=== PATIENT | male | born 1970 | race Caucasian/White ===

== ENCOUNTER 2021-06-03 11:56 | Outpatient (CLI) | payer OTHER, SELFPAY ==
[2021-06-03 13:11] LABS: Basophils Absolute Auto 0.1 K/mm3 (0.0-0.1); Basophils Percent Auto 0.7 % (0.2-1.2); Eosinophils Absolute Auto 0.2 K/mm3 (0-0.3); Eosinophils Percent Auto 2.3 % (0-4.4); Hematocrit 43.6 % (42.0-52.0); Hemoglobin 14.6 g/dL (14.0-18.0); Immature Granulocyte Absolute 0.02 K/mm3 (0.00-0.031); Immature Granulocyte Percent A 0.3 % (0-0.5); Lymphocytes Absolute Auto 1.44 K/mm3 (0.9-3.2); Lymphocytes Percent Auto 20.6 % (18.3-44.2); Mean Corpuscular HGB Conc 33.5 g/dl (32-36); Mean Corpuscular Hemoglobin 31.3 pg (26-34); Mean Corpuscular Volume 93.4 fl (80-100); Mean Platelet Volume 10.8 fl (7.4-10.4); Monocytes Absolute Auto 0.4 K/mm3 (0.1-0.6); Monocytes Percent Auto 5.6 % (2.6-8.5); Neutrophils Absolute Auto 4.9 K/mm3 (1.3-6.7); Neutrophils Percent Auto 70.5 % (45.5-73.1); Platelet Count Result 198 k/mm3 (150-375); Red Blood Count 4.67 M/mm3 (4.6-6.20); Red Cell Distribution Width 13.2 % (11.5-14.5)
[2021-06-03 13:30] LABS: CRP < 0.5 mg/dL (<1.0)
[2021-06-03 14:58] LABS: Erythrocyte Sedimentation Rate 13 mm/hr (0-20)
== END 2021-06-03 11:57 | disposition home or self-care (01) ==
PROVIDERS: PCP Internal Medicine; Visit Provider Orthopaedic Surgery
DX: T84.84XA Pain due to internal orthopedic prosthetic devices, implants and grafts, initial encounter (principal); Z96.651 Presence of right artificial knee joint
CPT/HCPCS: 36415; 85025; 85652; 86140

== ENCOUNTER 2021-06-09 08:37 | Outpatient (CLI) | payer OTHER, SELFPAY ==
--- NOTE | 2021-06-09 08:50 | ECG_ITS ---
Measurements Intervals [place] Rate: 71 P: [place]: 0 QRS: 30 QRSD: 88 T: 41 QT: 376 QTc: 411 Interpretive Statements ATRIAL FIBRILLATION BASELINE ARTIFACT- I, II, III, AVR, AVL, AVF, V1-V6 ABNORMAL ECG Electronically Signed On 06-09-2021 9:43:09 [employer] HEL[employer] by Flaco Galdamez D.O.
[2021-06-09 09:53] LABS: Anion Gap 7 mmol/L (8-16); Blood Urea Nitrogen 12 mg/dL (9-20); Calcium 9.6 mg/dL (8.4-10.2); Carbon Dioxide 34 mmol/L (22-30); Chloride 99 mmol/L (98-107); Estimated Glomerular Filt Rate > 60; Glucose 92 mg/dL (65-110); Potassium 4.2 mmol/L (3.4-5.0); Sodium 140 mmol/L (137-145)
== END 2021-06-09 08:38 | disposition home or self-care (01) ==
LOC: ANHSURGERY 08:40
PROVIDERS: Anesthesiology; PCP Internal Medicine; Visit Provider Orthopaedic Surgery
DX: Z01.818 Encounter for other preprocedural examination (principal); I10 Essential (primary) hypertension; I48.91 Unspecified atrial fibrillation; Z79.899 Other long term (current) drug therapy; R94.31 Abnormal electrocardiogram [ECG] [EKG]
CPT/HCPCS: 36415; 80048; 93005

== ENCOUNTER 2021-06-10 02:06 | Day surgery (SDC) | payer OTHER, SELFPAY ==
[2021-06-08 10:52] VITALS: BMI 35.2
--- NOTE | 2021-06-08 11:01 | PC.NURSE ---
Report to the Outpatient Waiting Room, entrance under the green pavilion located off [facility], at time 6:00 on date 06/10/21. OR Time: 8:00. - You will be asked a series of questions to screen for COVID 19 for your protection. - A mask is required within the hospital. - No visitors are allowed at this time. Preoperative COVID Testing Requirements: No COVID Test needed if: (proof is required; if not received patient will have Rapid Test prior to entry) - Patient has received COVID Vaccine at least 14 days prior to procedure date or - Patient has positive COVID test result within last 90 days of surgery date. COVID Test needed if above criteria is not met Patients may have clear liquids (water, carbonated beverages, clear teas, apple juice) until 3 hours prior to surgery (5:00) with a maximum of 20 ounces. - No food from midnight until time of surgery Take the following medications with a SIP of water the morning of surgery: PAIN PILL (IF NEEDED), METOPROLOL Medications to discontinue per physician: SILVIA Date to take last dose: PER DR. HILL Please no make-up, nail tamazight, hairspray, perfume, deodorant, or body powder the day of surgery. No jewelry (including any body piercings) or valuables the day of surgery, leave them at home. Please take a shower or bath the night before, or the morning of, surgery with an antibacterial soap. Wear comfortable, loose fitting clothing. - Jewelry must be removed prior to entering the operating room. Rings and piercings that are not removed may be cut off. - The hospital will not accept responsibility for valuables. - Please leave all valuables, including medications, at home the day of surgery. If you are going home after surgery, a licensed ross carrier driver must drive you home. - NO public transportation without another adult. - We recommend that an adult stay with you for 24 hours following discharge. - We also recommend that you do not drive, make important decision, drink alcoholic beverages, or take any drugs that were not prescribed by your health care provider for at least 24 hours after your discharge time. Follow any additional instructions given to you from your surgeon. Telephone instructions given to JACOB MCCOY and asked if any additional questions and then verbalized understanding. Patient advised to call surgeon office or pre surgery nurse liaison [phone] if any additional questions.
--- NOTE | 2021-06-09 16:09 | WPDANESEPPF ---
Anes - Initial Pre Proc Eval Procedure: Operation Date: 06/10/21 08:00 Proposed Procedures p Right Knee Arthroscopy with Synovectomy - Ryley Chan MD Date/Time: 06/09/21 16:09 Surgeon: Ryley Chan MD Pre Op Diagnosis: painful total knee arthroplasty, impingement Patient Data Age: 50 Gender: M Height: 1.98 m Weight: 138.35 kg Allergies Allergy/AdvReac Type Severity Reaction Status Date / Time No Known Allergies Allergy Unknown Verified 06/10/21 06:32 Home Medications Medication Instructions Recorded Confirmed Type allopurinol 300 mg tablet 150 mg PO DAILY 06/04/21 06/10/21 History apixaban 2.5 mg tablet 2.5 mg PO BID 06/04/21 06/10/21 History atorvastatin 10 mg tablet 10 mg PO DAILY 06/04/21 06/10/21 History fluticasone propionate 50 1 spray INTRANASAL DAILY 06/04/21 06/10/21 History mcg/actuation nasal spray,suspension hydrochlorothiazide 12.5 mg tablet 12.5 mg PO DAILY 06/04/21 06/10/21 History hydrocodone 7.5 mg-acetaminophen 1 tablet PO QHS PRN 06/04/21 06/10/21 History 325 mg tablet lisinopril 40 mg tablet 40 mg PO DAILY 06/04/21 06/10/21 History metoprolol succinate 50 mg 50 mg PO DAILY 06/04/21 06/10/21 History tablet,extended release 24 hr tramadol 50 mg tablet 50 mg PO Q6H PRN #20 tablet MDD 4 06/04/21 06/10/21 Rx Patient hx anesthesia problems: none Family hx anesthesia problems: none Results Review: All pre-operative results and documents have been reviewed as part of the pre-operative evaluation. [facility] Past Medical History Medical History (Updated 06/09/21 @ 16:10 by Jason Carmona MD) Atrial fibrillation Hyperlipidemia Hypertension Impingement of right knee joint Obesity Surgical History Surgical History (Updated 06/04/21 @ 10:57 by Ping Fuentes) History of total knee replacement (~09/2016) right knee Family History Family History Other Diabetes mellitus Family history of arthritis Family history of cardiovascular disease Family history of chronic obstructive pulmonary disease Hypertension Social History Social History Tobacco type: cigars Alcohol intake: current Drinks per week: 7 Substance use: current Substance use type: marijuana Living arrangements: with family Spiritual care concerns: No Anes - Eval Final PreProcedure Day of Procedure 06/09/21 16:09 Patient weight: obese Heart: regular rate and rhythm Lungs: clear to auscultation and normal air movement Airway: Mallampati scale class II Neurological: alert and oriented Last oral intake: >/= 8 hours ASA classification: III Emergent: no Anesthetic plan: proceed Anesthesia type and monitoring: general LMA Results Review: All pre-operative results and documents have been reviewed as part of the pre-operative evaluation. Informed Consent: The patient's anesthetic plan and its attendant risks and benefits were discussed with the patient/family/POA. Questions were solicited and answers provided to the satisfaction of the patient/family/POA.
[2021-06-10] VITALS (7 sets, daily range): BP systolic 122–145; BP diastolic 80–98; PULSE 65–105; RESP 14–20; TEMP 36.2–36.4; O2SAT 96–100
[2021-06-10] MEDS: ACETAMINOPHEN 500 MG TABLET 1000 MG PO (06:40)
[2021-06-10] MEDS: LACTATED RINGERS 1,000 ML 30 ML IV CONT ×2 (06:40→09:08)
[2021-06-10] MEDS: KETOROLAC 15 MG/ML VIAL (*BKC) IV PUSH (07:01)
[2021-06-10] MEDS: ceFAZolin 3 GM/D5W 100 ML 100 ML IVPB (07:44)
--- NOTE | 2021-06-10 07:50 | WPDHPUPDATE1 ---
History and Physical Update Update Date/Time: 06/10/21 07:50 History and Physical has been reviewed, including an updated exam of the patient. There are NO changes in the patient's condition. Risks, benefits, and alternatives have been discussed and questions answered. Patient agrees to proceed with procedure.
[2021-06-10] MEDS: BUPIVACAINE/EPINEPHRINE 0.25% 10 ML VIAL 20 ML INFILTRATE (08:20)
[2021-06-10] MEDS: fentaNYL CITRATE INJ (*CRX) 100 MCG/2 ML VIAL 25 MCG IV PUSH ×2 (09:46→09:49)
--- NOTE | 2021-06-10 13:59 | P.OP_ITS ---
Procedure Note - Detailed Date of Procedure 06/10/21 Pre-op Diagnosis painful total knee arthroplasty, impingement Post-op Diagnosis same Procedure Performed Arthroscopic partial synovectomy, right knee. Surgeon Ryley Chan MD Senior Patient Account Representative Sveta Meza PA-C Anesthesia general Indications Recurrent, painful catching sensation at the lateral joint, s/p total knee arthroplasty. Previously functioning very well. Findings Effusion. No purulence. Minimal synovitis. Proliferative synovium lateral joint with tissue entrapment at the lateral articulation. Tissue excised arthroscopically. Mild lateral laxity. PCL intact. No other pathologic findings. Description of Procedure The patient was identified and the surgical site confirmed and signed in the preoperative holding area. Antibiotics were started per protocol. She was brought to the operative room and transferred to the OR table. A general anesthetic was administered. Supine position with the operative lower extremity position in the leg gomez after placement of a well padded tourniquet. The leg support was lowered and the contralateral limb was supported with a soft bolster. The knee was prepped and draped in the usual sterile fashion. A time- out was performed. The portal sites were marked and infiltrated with 0.5% Marcaine 20 mL. The limb was exsanguinated and the tourniquet inflated to 300 mL Hg. Standard inferolateral and inferomedial portals were established. Inflow was obtained with the saline pump. The camera was introduced. Diagnostic inspection of the joint was accomplished. The proliferative, unstable, lateral capsular tissue was debrided with the arthroscopic shaver until stable. The radiofrequency probe was also used for further d?bridement. Slight further debridement of hypertrophic peripatellar tissue was performed, where there was concern for possible impingement or catching. The arthroscopic instruments were removed. The tourniquet released and wounds closed with subcutaneous 4-0 Monocryl absorbable suture. Steri strips and a sterile dressing were applied. A light elastic wrap was placed. The patient was extubated and brought to the recovery room in stable condition. Estimated Blood Loss 5 Drains No Complications No immediate complications Condition stable Disposition PACU
== END 2021-06-10 11:00 | disposition home or self-care (01) ==
PROVIDERS: PCP Internal Medicine; Visit Provider Orthopaedic Surgery
PROC: (CPT 29870; principal; 2021-06-10 08:00)
DX: M25.861 Other specified joint disorders, right knee (principal); M25.561 Pain in right knee; M65.861 Other synovitis and tenosynovitis, right lower leg; Z96.651 Presence of right artificial knee joint; I48.91 Unspecified atrial fibrillation; E78.5 Hyperlipidemia, unspecified; I10 Essential (primary) hypertension; E66.9 Obesity, unspecified; Z68.35 Body mass index [BMI] 35.0-35.9, adult; Z79.01 Long term (current) use of anticoagulants; F12.90 Cannabis use, unspecified, uncomplicated; Z72.0 Tobacco use
CPT/HCPCS: 29875; 36415; 80048; 87070; 87075; 87205; 93005; A9270; J0690; J1100; J1885; J2250; J2405; J2704; J3010; J7120

== ENCOUNTER 2021-11-02 11:12 | Inpatient (IN) | payer OTHER, SELFPAY ==
[2021-11-02] VITALS (28 sets, daily range): BP systolic 146–183; BP diastolic 017–147; PULSE 84–134; RESP 12–30; TEMP 36.1–36.6; O2SAT 97–100; BMI 36.6
--- NOTE | ~2021-11-02 | CT_ITS ---
EXAMINATION: CTA chest PE protocol DATE: 11/02/2021 12:30 INDICATION: Dyspnea, shortness of breath. TECHNIQUE: Computed tomography angiography (CTA) of the chest was performed with 100 mL Omnipaque-350 intravenous contrast timed to evaluate the pulmonary arteries. Coronal maximum intensity projection 3D-reconstructions were created by the technologist. Automated exposure control and iterative reconst ruction technique were employed. Exam dose: 951.61 mGy-cm total exam DLP. COMPARISON: 11/02/2021 2 view chest FINDINGS: There is diagnostic contrast enhancement of the pulmonary arteries and no evidence of pulmo nary embolism. Mild cardiomegaly. No pericardial effusion. There is mild right and slight left pleural effusion. There is mild prominence of the fissures suggesting subpleural edema. There is some prominence of the interlobular septa particularly in the lower lobes, suggesting pulmonary interstitial edema. No thoracic aortic aneurysm. Mild nonspecific bilateral hilar and mediastinal lymph node prominence, possibly reactive. The adrenal glands are normal. Bilateral gynecomastia. IMPRESSION: No evidence of pulmonary embolism Congestive changes and small pleural effusions Reviewed, dictated and finalized at [facility]. Reviewed, dictated and finalized at location [facility].
--- NOTE | ~2021-11-02 | XR_ITS ---
EXAMINATION: XR chest 2V DATE: 11/02/2021 11:51 INDICATION: Shortness of breath. Swelling of the feet and ankles. TECHNIQUE: Frontal and lateral views of the chest were obtained on 3 radiographs. COMPARISON: None. FINDINGS: The chest demonstrates clear lungs without pneumonia, pleural effusion, or pneumothorax. Th e heart size is normal. IMPRESSION: 1. No acute cardiopulmonary disease. Reviewed, dictated and finalized at location [facility].
--- NOTE | ~2021-11-02 | US_ITS ---
EXAMINATION:US venous doppler LE LT INDICATION:Left leg swelling TECHNIQUE: Multiple grayscale, color flow and Doppler images of the left lower extremity deep venous systems were obtained and reviewed. COMPARISON:No prior studies for comparison. FINDINGS: The common femoral, superficial femoral and popliteal veins demonstrate normal respiratory variation, augmentation and compressibility. Color flow is also seen within the posterior tibial, pe roneal, greater saphenous and profunda veins. IMPRESSION: 1: No lower extremity deep venous thrombosis. Reviewed, dictated and finalized at location [facility].
--- NOTE | 2021-11-02 11:18 | ECG_ITS ---
Measurements Intervals [place] Rate: 110 P: [place]: 0 QRS: 28 QRSD: 89 T: 69 QT: 362 QTc: 491 Interpretive Statements ATRIAL FIBRILLATION WITH RAPID VENTRICULAR RESPONSE DELAYED PRECORDIAL R/S TRANSITION BORDERLINE ST-T WAVE ABNORMALITY- HIGH LATERAL LEADS ABNORMAL ECG Electronically Signed On 11-02-2021 11:23:03 CDT by Flaco Galdamez D.O.
[2021-11-02 11:35] LABS: Basophils Absolute Auto 0.1 K/mm3 (0.0-0.1); Basophils Percent Auto 0.9 % (0.2-1.2); Eosinophils Absolute Auto 0.1 K/mm3 (0-0.3); Eosinophils Percent Auto 1.5 % (0-4.4); Hematocrit 42.6 % (42.0-52.0); Hemoglobin 13.5 g/dL (14.0-18.0); Immature Granulocyte Absolute 0.02 K/mm3 (0.00-0.031); Immature Granulocyte Percent A 0.2 % (0-0.5); Lymphocytes Absolute Auto 1.57 K/mm3 (0.9-3.2); Lymphocytes Percent Auto 18.3 % (18.3-44.2); Mean Corpuscular HGB Conc 31.7 g/dl (32-36); Mean Corpuscular Volume 94.7 fl (80-100); Mean Platelet Volume 10.7 fl (7.4-10.4); Monocytes Absolute Auto 0.5 K/mm3 (0.1-0.6); Monocytes Percent Auto 5.8 % (2.6-8.5); Neutrophils Absolute Auto 6.3 K/mm3 (1.3-6.7); Neutrophils Percent Auto 73.3 % (45.5-73.1); Platelet Count Result 235 k/mm3 (150-375); Red Cell Distribution Width 13.9 % (11.5-14.5); White Blood Count 8.6 K/mm3 (4.5-10.0)
[2021-11-02 11:45] LABS: INR 1.2; Prothrombin Time 14.8 Seconds (11.1-14.7)
[2021-11-02 11:46] LABS: Alanine Aminotransferase 20 U/L (6-50); Albumin Level 3.9 g/dL (3.5-5.1); Alkaline Phosphatase 86 U/L (38-126); Anion Gap 5 mmol/L (8-16); Aspartate Amino Transferase 28 U/L (17-59); Blood Urea Nitrogen 13 mg/dL (9-20); Calcium 8.7 mg/dL (8.4-10.2); Carbon Dioxide 24 mmol/L (22-30); Chloride 108 mmol/L (98-107); Estimated Glomerular Filt Rate > 60; Glucose 108 mg/dL (65-110); Partial Thromboplastin Time 29.1 SECONDS (22.3-36.8); Sodium 137 mmol/L (137-145)
[2021-11-02 11:58] LABS: NT Pro B Type Natriuretic Pept 7490 pg/mL (5-100); Troponin I < 0.012 ng/mL (0.000-0.034)
--- NOTE | 2021-11-02 12:31 | ED.GENADULT ---
HPI - General Adult General Chief complaint: Arrhythmia/Palpitations Stated complaint: elevated HR, left calf pain, SOB Time Seen by Provider: 11/02/21 12:02 Source: RN notes reviewed History of Present Illness HPI narrative: Patient presents emergency department from home for left calf pain and shortness of breath. Patient states he been having pain and swelling in his left leg for the past 3 days. States the pain is located in his left lower calf is on his dorsal aspect of his left foot he states that he has had swelling with this he denies any direct trauma or injury he also states has been having shortness of breath with a feeling of his heart racing over the past 3 days states that he has no history of recent long travel either by car or plane he denies any history of blood clots he denies any fevers or chills chest pain abdominal pain nausea vomiting or any other symptoms patient states he does have a history of atrial fibrillation states he is followed by cardiology in [place] he is on metoprolol and a milligrams twice a day which she did take this morning as well as Eliquis which she did take this morning as well Related Data Home Medications Medication Instructions Recorded Confirmed allopurinol 300 mg tablet 300 mg PO DAILY 06/04/21 11/02/21 fluticasone propionate 50 2 spray intranasal DAILY 06/04/21 11/02/21 mcg/actuation nasal spray,suspension (Allergy Relief (fluticasone)) Vitamin D3 1.25 mg PO WEEKLY 11/02/21 11/02/21 amlodipine 5 mg tablet 5 mg PO DAILY 11/02/21 11/02/21 apixaban 5 mg tablet (Eliquis) 5 mg PO BID 11/02/21 11/02/21 atorvastatin 40 mg tablet 40 mg PO DAILY 11/02/21 11/02/21 buspirone 10 mg tablet 10 mg PO BID 11/02/21 11/02/21 hydrochlorothiazide 50 mg tablet 50 mg PO DAILY 11/02/21 11/02/21 lisinopril 20 mg tablet 20 mg PO DAILY 11/02/21 11/02/21 melatonin 1 mg tablet 10 mg PO HS PRN Insomnia 11/02/21 11/02/21 metoprolol tartrate 100 mg tablet 100 mg PO BID 11/02/21 11/02/21 polyethylene glycol 3350 17 gram 17 g PO DAILY 11/02/21 11/02/21 oral powder packet sertraline 100 mg tablet 200 mg PO DAILY 11/02/21 11/02/21 tadalafil 5 mg tablet (Cialis) 5 mg PO DAILY PRN Sexual Activity 11/02/21 11/02/21 tamsulosin 0.4 mg capsule 0.4 mg PO DAILY 11/02/21 11/02/21 Allergies Allergy/AdvReac Type Severity Reaction Status Date / Time No Known Allergies Allergy Unknown Verified 11/02/21 11:24 Review of Systems Review of Systems: Gen.: Denies fevers or chills ENT: Denies congestion Respiratory: D reports shortness of breath CV: Denies chest pain or palpitations GI: Denies abdominal pain nausea, emesis or diarrhea Musculoskeletal: Denies back pain reports left calf pain and leg swelling Neuro: Denies numbness, tingling, weakness or focal weakness Skin: Denies rash Except as documented, all other systems reviewed and negative [facility] Past Medical History Medical History Atrial fibrillation History of cardioversion Hyperlipidemia Hypertension Impingement of right knee joint Joint effusion Right knee Obesity Surgical History Surgical History History of synovectomy (~06/10/21) right arthroscopic synovectomy History of total knee replacement (~09/2016) right knee Family History Family History (Updated 11/02/21 @ 16:04 by Pratibha Lara RN) Father Hypertension Mother Hypertension Sibling Hypertension Other Diabetes mellitus Social History Social History Social History: Patient is currently going through a divorce and has two boys 02/03. His mother is his surrogate Ml. He lives by his self and wishes to be a full code at this time. Smoking status: Light tobacco smoker Tobacco type: cigars Additional smoking assessment comments: 1-2 cigars/day Alcohol intake: current Drinks per week: 7 Subst
[2021-11-02 13:18] LABS: SARS-CoV-2 RNA PCR Negative
[2021-11-02] MEDS: HYDROcodone/acetaminophen (*CRX) 5-325 MG TABLET 1 TAB PO ×3 (13:37→21:53)
--- NOTE | 2021-11-02 13:44 | PC.NURSE ---
pt to ultrasound via stretcher. family at bedside.
--- NOTE | 2021-11-02 14:53 | ECG_ITS ---
Measurements Intervals [place] Rate: 113 P: [place]: 0 QRS: 46 QRSD: 85 T: 79 QT: 357 QTc: 490 Interpretive Statements ATRIAL FIBRILLATION WITH RAPID VENTRICULAR RESPONSE DELAYED PRECORDIAL R/S TRANSITION ABNORMAL ECG Electronically Signed On 11-02-2021 15:01:15 CDT by Flaco Galdamez D.O.
--- NOTE | 2021-11-02 15:14 | PM.IMHP ---
H&P: HPI History of Present Illness Date/Time: 11/02/21 15:14 Chief Complaint: shortness of breath Narrative: Patient is a 51 year old male with a past medical history of gout, A.Fib, HLD, HTN, and CHF who presented to the ED with complaints of increasing shortness of breath, and calf pain. He stated that he orginally went to his primary care provider for left leg swelling and pain. However, when he got there they did perform an EKG which showed the patient to be in Afib with a heart rate in the 130. She then told him to come to the ED. patient stated that he was having some shortness of breath when he arrived to the doctor's office morning. He stated his legs are always swollen however they usually do not last long. He denies having any blood clots in the past. He also stated that it does her when he does walk. Patient did say that it was controlled with pain medication. He states that his pain was an 8/10. He does drink 6-8 bottles of water during day and then a few more night. He states that his legs are always swollen. He has also had 4 different surgeries done on his right knee and stated that his left 1 has been progressively getting swollen over the last [address] Lockwood has done the work on his knees, and he sees Dr. Posey for his heart. He also stated that his heart rate is usually in the low 100s, and his blood pressure usually runs 140/90-95. He denies any chest pain, weakness, fatigue, cough, urinary difficulties, dizziness, lightheadedness, nausea, vomiting, diarrhea, constipation, syncope or falls. It is noted the patient's BNP is elevated 7490, D-dimer was 1.20. CTA did not show any PEs. Venous Doppler showed no DVTs in the bilateral lower extremities. Patient is being admitted to the hospitalist service as observation. Review of Systems Review of Systems: All systems reviewed & are unremarkable except as noted in HPI and below PMFSH Past Medical History Medical History Atrial fibrillation History of cardioversion Hyperlipidemia Hypertension Impingement of right knee joint Joint effusion Right knee Obesity Surgical History Surgical History History of synovectomy (~06/10/21) right arthroscopic synovectomy History of total knee replacement (~09/2016) right knee Family History Family History (Updated 11/02/21 @ 16:04 by Pratibha Lara RN) Father Hypertension Mother Hypertension Sibling Hypertension Other Diabetes mellitus Social History Social History Social History: Patient is currently going through a divorce and has two boys 02/03. His mother is his surrogate Ml. He lives by his self and wishes to be a full code at this time. 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 Gender identity (if verbalized by the patient): Male Sexual Orientation (if Verbalized by the Patient): Straight or Heterosexual Spiritual care concerns: No Agree to blood products: Yes Meds Home Medications and Allergies Home Medications Medication Instructions Recorded Confirmed Type allopurinol 300 mg tablet 300 mg PO DAILY 06/04/21 11/02/21 History fluticasone propionate 50 2 spray intranasal DAILY 06/04/21 11/02/21 History mcg/actuation nasal spray,suspension (Allergy Relief (fluticasone)) Vitamin D3 1.25 mg PO WEEKLY 11/02/21 11/02/21 History amlodipine 5 mg tablet 5 mg PO DAILY 11/02/21 11/02/21 History apixaban 5 mg tablet (Eliquis) 5 mg PO BID 11/02/21 11/02/21 History atorvastatin 40 mg tablet 4
[2021-11-02] MEDS: FUROSEMIDE INJ 40 MG/4 ML VIAL IV PUSH ×2 (15:24→16:59)
[2021-11-02] MEDS: METOPROLOL TARTRATE 25 MG TABLET PO (15:24)
[2021-11-02 15:42] LABS: Troponin I 0.012 ng/mL (0.000-0.034)
--- NOTE | 2021-11-02 16:00 | ADMGEN ---
This patient, Tobi Valles, was admitted to IMU Room 210-01. Patient/family oriented to hospital policies and general routines including ID bracelet, bed and alarms, visiting hours, pain management, procedures, bathroom and other care routines, personal items, smoking policy, room service/diet, and visiting hours. Information on how to activate the Rapid Response Team has been discussed. Patient/Family are encouraged to report perceived risks to care and to ask questions if they do not understand what they are told or what they should do.
--- NOTE | 2021-11-02 16:30 | PM.CNCAR ---
Assessment and Plan Assessment and plan (1) CHF (congestive heart failure): Code(s): I50.9 - Heart failure, unspecified Status: Acute (2) Atrial fibrillation: Qualifiers: Atrial fibrillation type: longstanding persistent Qualified Code(s): I48.11 - Longstanding persistent atrial fibrillation Code(s): I48.91 - Unspecified atrial fibrillation Status: Acute Plan This is a 51-year-old man who has chronic permanent atrial fibrillation taking metoprolol for rate control and apixaban for coagulation. He presents with some shortness of breath with activity as well as orthopnea and PND for the last couple of weeks or so. He was sent to this hospital primary care physician although his customs entry writer is not on staff here at [place]. We do not have any previous records of his cardiovascular care for our benefit her review. On physical exam there really is not much audible in the way of pulmonary rales. He does have some mild pulmonary congestion noted on CT of the chest. I believe we should for the time being keep him on his metoprolol and apixaban he has been started on furosemide by the hospitalist which I would agree with. An echocardiogram will be done to assess the structural basis of this. Thank you for asking us to see him while he is here he will intend to follow up with his primary customs entry writer after the discharge. Bolivar Ross MD [facility] History of Present Illness History of Present Illness Consult date/time: 11/02/21 16:30 Consult reason: atrial fibrillation and shortness of breath Reason For Visit: A fib with RVR/CHF Narrative: This is a 51-year-old man I am seeing at the request of the hospitalist because of shortness of breath. The patient came to the emergency room earlier today at the request of the primary care doctor who saw him in the office and directed him to the emergency room because of dyspnea and lower extremity edema. He states the symptoms began over about 2 or 3 weeks ago. The symptoms are problematic if he tries to walk any distances or several times he has noticed them for awakening her from sleep at night. The patient does not carry the diagnosis of congestive heart failure before this he is known to have chronic atrial fibrillation. He does not have any other cardiac problems he is aware of the side his atrial fib. He has seen a couple of different customs entry [facility] and is taking combination of metoprolol for rate control and apixaban for systemic anticoagulation. He does not have any history of coronary artery disease previous [place] or any other previous cardiac issues. He is going through a very stressful personal time with a divorce indicates he was concerned that that may be what is going on in terms of his breathing he does have longstanding hypertension in addition to his metoprolol takes lisinopril and hydrochlorothiazide. He does also have dyslipidemia for which he takes atorvastatin. Review of Systems Constitutional: Constitutional: Reports no additional constitutional complaints Eyes: Eyes: Reports no additional eye complaints ENT: Reports system reviewed and no additional complaints, except as documented Cardiovascular: Cardiovascular: Reports as per HPI Respiratory: Respiratory: Reports dyspnea on exertion Gastrointestinal: Gastrointestinal: Reports no additional gastrointestinal complaints Musculoskeletal: Musculoskeletal: Reports no additional musculoskeletal complaints Integumentary/Breasts: Skin/Breast: Reports system reviewed and no additional complaints, except as docu Neurologic: Reports system reviewed and no additional complaints, except as documented Endocrine: Endocrine: Reports no additional endocrine complaints Hematologic/Lymphatic: Hematologic/Lymphatic: Reports no additional hematologic/lymphatic complaints Allergic/Immunologic: Allergic/Immunologic: Reports no additional a
[2021-11-02] MEDS: APIXABAN 5 MG TABLET PO (16:59)
[2021-11-02] MEDS: hydrALAZINE HCL 20 MG/ML VIAL 10 MG IV PUSH ×2 (16:59→23:01)
[2021-11-02] MEDS: amLODIPine BESYLATE 5 MG TABLET PO (17:00)
[2021-11-02 18:29] LABS: Troponin I < 0.012 ng/mL (0.000-0.034)
[2021-11-02] MEDS: ERGOCALCIFEROL 50,000 UNIT CAPSULE 50000 UNITS PO (18:33)
[2021-11-02] MEDS: METOPROLOL TARTRATE 50 MG TAB 100 MG PO (20:02)
[2021-11-02] MEDS: busPIRone HCL 10 MG TABLET PO (20:03)
[2021-11-02] MEDS: MELATONIN 5 MG TABLET 10 MG PO (21:52)
[2021-11-03] VITALS (16 sets, daily range): BP systolic 127–167; BP diastolic 77–113; PULSE 81–103; RESP 12–20; TEMP 36.2–36.5; O2SAT 96–99
--- NOTE | 2021-11-03 | ECHO_ITS ---
Patient Info Name: Tobi Valles Age: 51 years : 1970 Gender: Male Ht: 78 in Wt: 316 lbs BSA: 2.85 m2 HR: 85 bpm BP: 150 / 105 mmHg Heart Rhythm: Atrial Fibrillation Technical Quality: Fair Exam Date: 11/03/2021 10:31 AM Exam Location: [facility] Patient Status: Inpatient Admit Date: 11/02/2021 Staff Ordering Physician: Bolivar Ross MD Emr Trainer: Emani Leavitt RDCS Attending Provider: Bolivar Sethi MD Referring Physician: Vandana SEGURA; Exam Type: CA echo dop color flow w con Study Info Indications - CONGESTIVE HEART FAILURE I48.1 - Persistent atrial fibrillation Complete two-dimensional, color flow and Doppler transthoracic echocardiogram is performed with contrast to opacify the left ventricle and to improve the deliniation of the left ventricle endocardial borders. Contrast/Agitated Saline Contrast/Ag. Saline: Definity Amount: 4.00 ml Administered By: Emani Leavitt RDCS Existing IV Access: Yes IV Access Condition: patent with no signs of infiltration Summary 1. Left ventricular chamber dimension is normal. 2. Left ventricular systolic function is mild to moderately reduced, estimated at 45%. 3. There is mildly increased left ventricular wall thickness. 4. Left atrial chamber dimension is severely enlarged. 5. Right atrial chamber dimension is mild to moderately enlarged. 6. There is trace tricuspid valve regurgitation. 7. No pulmonary hypertension, estimated pulmonary arterial systolic pressure is 30 mmHg. 8. There is no aortic valve stenosis. 9. Dilated inferior vena cava with no collapse upon inspiration consistent with significantly elevated right atrial pressure, 15 mmHg. Left Ventricle Left ventricular chamber dimension is normal. Left ventricular systolic function is mild to moderately reduced, estimated at 45%. There is mildly increased left ventricular wall thickness. The left ventricular diastolic function is indeterminate. Right Ventricle Right ventricular chamber dimension is normal. Right ventricular systolic function is reduced. Left Atria Left atrial chamber dimension is severely enlarged. Right Atria Right atrial chamber dimension is mild to moderately enlarged. Aortic Valve The aortic valve is probable trileaflet. There is no aortic valve stenosis. There is trace aortic valve regurgitation. Pulmonic Valve The pulmonic valve is not well visualized. Mitral Valve The mitral valve has thickened leaflets. There is trace mitral valve regurgitation. The mitral valve annulus is mildly calcified. Tricuspid Valve The tricuspid valve leaflets are normal. There is trace tricuspid valve regurgitation. No pulmonary hypertension, estimated pulmonary arterial systolic pressure is 30 mmHg. Pericardium/Pleural The pericardium appears normal. There is trivial pericardial effusion. Inferior Vena Cava Dilated inferior vena cava with no collapse upon inspiration consistent with significantly elevated right atrial pressure, 15 mmHg. Aorta The aortic root size at the sinus of Valsalva is normal. There is mild aortic atherosclerosis. Left Ventricular Outflow Tract Name Value Normal LVOT 2D
[2021-11-03] MEDS: cloNIDine HCL 0.1 MG TABLET PO (01:47)
[2021-11-03] MEDS: HYDROcodone/acetaminophen (*CRX) 5-325 MG TABLET 1 TAB PO ×5 (01:53→21:30)
[2021-11-03 05:21] LABS: Basophils Absolute Auto 0.1 K/mm3 (0.0-0.1); Eosinophils Absolute Auto 0.2 K/mm3 (0-0.3); Eosinophils Percent Auto 3.7 % (0-4.4); Hematocrit 40.4 % (42.0-52.0); Hemoglobin 12.9 g/dL (14.0-18.0); Immature Granulocyte Absolute 0.05 K/mm3 (0.00-0.031); Immature Granulocyte Percent A 0.8 % (0-0.5); Lymphocytes Percent Auto 29.3 % (18.3-44.2); Mean Corpuscular HGB Conc 31.9 g/dl (32-36); Mean Corpuscular Hemoglobin 29.7 pg (26-34); Mean Corpuscular Volume 93.1 fl (80-100); Mean Platelet Volume 10.6 fl (7.4-10.4); Monocytes Absolute Auto 0.4 K/mm3 (0.1-0.6); Monocytes Percent Auto 6.4 % (2.6-8.5); Neutrophils Absolute Auto 3.6 K/mm3 (1.3-6.7); Neutrophils Percent Auto 58.8 % (45.5-73.1); Platelet Count Result 229 k/mm3 (150-375); Red Blood Count 4.34 M/mm3 (4.6-6.20); Red Cell Distribution Width 13.8 % (11.5-14.5); White Blood Count 6.1 K/mm3 (4.5-10.0)
[2021-11-03 05:34] LABS: Alanine Aminotransferase 18 U/L (6-50); Albumin Level 3.5 g/dL (3.5-5.1); Alkaline Phosphatase 75 U/L (38-126); Anion Gap 6 mmol/L (8-16); Aspartate Amino Transferase 24 U/L (17-59); Blood Urea Nitrogen 15 mg/dL (9-20); Calcium 8.6 mg/dL (8.4-10.2); Carbon Dioxide 32 mmol/L (22-30); Chloride 101 mmol/L (98-107); Estimated CRCL calculation 113 ml/min; Estimated Glomerular Filt Rate > 60; Glucose 97 mg/dL (65-110); Magnesium 1.9 mg/dL (1.6-2.3); Potassium 3.9 mmol/L (3.4-5.0); Sodium 139 mmol/L (137-145)
[2021-11-03] MEDS: hydrALAZINE HCL 20 MG/ML VIAL 10 MG IV PUSH (06:16)
[2021-11-03] MEDS: allopurinoL 300 MG TABLET PO (08:39)
[2021-11-03] MEDS: amLODIPine BESYLATE 5 MG TABLET PO (08:39)
[2021-11-03] MEDS: APIXABAN 5 MG TABLET PO ×2 (08:39→16:30)
[2021-11-03] MEDS: ATORVASTATIN 40 MG TABLET PO (08:39)
[2021-11-03] MEDS: TAMSULOSIN HCL 0.4 MG CAPSULE PO (08:39)
[2021-11-03] MEDS: SERTRALINE HCL 50 MG TABLET 200 MG PO (08:39)
[2021-11-03] MEDS: FLUTICASONE PROPIONATE 0.05% NA SPR 16 GM BTL (*BKC) 2 SPRAY NASAL (08:40)
[2021-11-03] MEDS: lisinopriL 20 MG TABLET PO (08:40)
[2021-11-03] MEDS: busPIRone HCL 10 MG TABLET PO ×2 (08:40→21:16)
[2021-11-03] MEDS: METOPROLOL TARTRATE 50 MG TAB 100 MG PO ×2 (08:40→21:16)
[2021-11-03] MEDS: FUROSEMIDE INJ 40 MG/4 ML VIAL IV PUSH ×2 (08:41→16:31)
[2021-11-03] MEDS: PERFLUTREN LIPID MICROSPHERES 1.5 ML VIAL DILUTED TO 10 ML TOTAL VOLUME IV PUSH (11:00)
--- NOTE | 2021-11-03 11:59 | PM.PNCARD ---
Progress Note: A&P Assessment and Plan (1) CHF (congestive heart failure): Qualifiers: Heart failure type: combined systolic and diastolic Heart failure chronicity: acute Qualified Code(s): I50.41 - Acute combined systolic (congestive) and diastolic (congestive) heart failure Code(s): I50.9 - Heart failure, unspecified Status: Acute Assessment and Plan: Given new diagnosis LV dysfunction and CHF will continue with IV diuresis. Accurate input and output, daily weight. CHF counseling. Discussed preference to discontinue lisinopril in favor of Entresto but need to balance blood pressure control in the interval. Discussed washout of at least 36 hours prior to initiation of Entresto 49/52mg BID starting 11/05/21 AM. Recommended addition of Jardiance 10 mg daily. (2) Atrial fibrillation: Qualifiers: Atrial fibrillation type: longstanding persistent Qualified Code(s): I48.11 - Longstanding persistent atrial fibrillation Code(s): I48.91 - Unspecified atrial fibrillation Status: Acute Assessment and Plan: Persistent, longstanding. Heart rate much better controlled on oral metoprolol tartrate 100 mg twice daily. However, due to new LV dysfunction prefer to avoid diltiazem if possible as counseled but not to jeopardize overall heart rate control. Transition to metoprolol succinate given LV dysfunction and CHF 125 mg daily beginning tomorrow morning provided heart rate remains well controlled. Continue systemic anticoagulation with Eliquis 5 mg twice daily for embolic stroke risk reduction. (3) Cardiomyopathy: Qualifiers: Cardiomyopathy type: unspecified Qualified Code(s): I42.9 - Cardiomyopathy, unspecified Code(s): I42.9 - Cardiomyopathy, unspecified Status: Acute Assessment and Plan: New diagnosis EF visually estimated approximately 45%. Discussed considerations including etiology mainly ischemic versus nonischemic. Possibly tachycardia induced cardiomyopathy he poor control of atrial fibrillation. Advised ischemic evaluation noninvasive ischemic initially as patient is not exhibiting any anginal symptoms and reports left heart catheterization with no significant reported CAD many years ago. Patient also indicates to me he would like to transfer his cardiovascular care and follow-up with me as an outpatient moving forward. (4) Hypertension: Code(s): I10 - Essential (primary) hypertension Status: Acute Assessment and Plan: Quite elevated this morning, improved after receiving medications. Subjective Date/time seen: Date of service: 11/03/21 11:59 Follow-up for atrial fibrillation with RVR, CHF Patient very short of breath this morning markedly improved after receiving IV Lasix. Heart rate much better controlled overnight tolerating regimen. Denies chest pain, dizziness, lightheadedness. Still complains of painful edema in lower extremities, hurts to walk. Review of Systems Constitutional: Constitutional: Reports no additional constitutional complaints Eyes: Eyes: Reports no additional eye complaints ENT: Reports system reviewed and no additional complaints, except as documented Cardiovascular: Cardiovascular: Reports as per HPI and Reports dyspnea on exertion Respiratory: Respiratory: Reports dyspnea on exertion Gastrointestinal: Gastrointestinal: Reports no additional gastrointestinal complaints Musculoskeletal: Musculoskeletal: Reports no additional musculoskeletal complaints Integumentary/Breasts: Skin/Breast: Reports system reviewed and no additional complaints, except as docu Neurologic: Reports system reviewed and no additional complaints, except as documented Endocrine: Endocrine: Reports no additional endocrine complaints Hematologic/Lymphatic: Hematologic/Lymphatic: Reports no additional hematologic/lymphatic complaints Allergic/Immunologic: Allergic/Immunologic: Reports no additional allergic/immu
[2021-11-03] MEDS: EMPAGLIFLOZIN 10 MG TABLET PO (12:53)
--- NOTE | 2021-11-03 14:48 | PM.IMPN ---
Progress Note: A&P Assessment and Plan (1) CHF (congestive heart failure): Qualifiers: Heart failure chronicity: acute Heart failure type: combined systolic and diastolic Qualified Code(s): I50.41 - Acute combined systolic (congestive) and diastolic (congestive) heart failure Code(s): I50.9 - Heart failure, unspecified Status: Acute Assessment and Plan: Patient presents with shortness of breath and increasing pedal edema. CXR was ready as clear but CTA chest did show congestive changes and small pleural effusions. BNP was 7490. He was started on Lasix 40 mg IV b.i.d. Echo showing EF 45% with severely enlarged left atrium and dilated inferior vena cava consistent with elevated right atrial pressure. He had indeterminate diastolic function. He has had excellent urine output since admission. Will continue on Lopressor. Jardiance added. Lisinopril stopped plans to start Entresto after washout. Appreciate Cardiology input (2) Atrial fibrillation: Qualifiers: Atrial fibrillation type: longstanding persistent Qualified Code(s): I48.11 - Longstanding persistent atrial fibrillation Code(s): I48.91 - Unspecified atrial fibrillation Status: Acute Assessment and Plan: Patient has known chronic AFib. Heart rate mildly elevated on admission probably related to the fluid overload. He is continued on metoprolol and he was switched to Toprol-XL. Heart rate has improved. He remains on Eliquis. Echo as mentioned above. Continue to monitor on telemetry. (3) Hypertension: Code(s): I10 - Essential (primary) hypertension Status: Acute Assessment and Plan: Patient's blood pressure was reviewed on 11/03. Blood pressure was elevated on admission has remained not at goal. Medications being adjusted for his heart failure. Continue to monitor and adjust medications accordingly. (4) Hyperlipidemia: Code(s): E78.5 - Hyperlipidemia, unspecified Status: Acute Assessment and Plan: LFTs normal. Will continue atorvastatin. (5) Obesity: Code(s): E66.9 - Obesity, unspecified Status: Acute Assessment and Plan: BMI is elevated. Lifestyle changes and education given. Dietitian consult (6) Elevated d-dimer: Code(s): R79.89 - Other specified abnormal findings of blood chemistry Status: Acute Assessment and Plan: Dimer was 1.20. Venous Doppler neg bilaterally. CTA of the chest is negative for PE. COVID-19 nasal swab was negative. Patient has been on Eliquis as outpatient. Continue Eliquis Subjective Date/time seen: 11/03/21 14:48 Interval history: 51yo male with hx of HTN, cAFib and HLD here for shortness of breath. Patient does not have CHF but does have chronic AFib on metoprolol and Eliquis. He does not have a history of coronary disease. He is followed by a corporate claims examiner in the [facility]. He states his last stress test was 10 years ago. He denies any chest pain or shortness of breath. He is able to lie flat in the bed today and denies any orthopnea symptoms. Eating normally. No nausea or vomiting. He does complain of lower extremity pain and tightness but this is improving. Exam Narrative: AF 97.7 134/99 91 12 97% ra Gen - NARD lying flat in bed Chest - CTA bilaterally, nml RR CV -irregularly irregular. Telemetry shows AFib with controlled rate Abd - Soft, NT/ND, Positive BS Ext -1+ bilateral lower extremity pitting pedal edema. Psych - Nml mood and affect Skin - Warm and dry Objective Data Vital Signs Vital Signs: Vital Signs - 24 hr 11/02/21 15:24 11/02/21 15:00 11/02/21 15:15 Temperature Pulse Rate 111 H 112 H 117 H Respiratory Rate 23 H 23 H Blood Pressure Pulse Oximetry Oxygen Delivery 11/02/21 16:00 11/02/21 16:00 11/02/21 16:00 Temperature 97.2 F L Pulse Rate 101 H 119 H Respiratory Rate 12 Blood Pressure 183/93 H Pulse Oximetr
[2021-11-03] MEDS: traMADol HCL (*CRX) 25 MG TABLET PO (16:31)
[2021-11-03] MEDS: MELATONIN 5 MG TABLET 10 MG PO (21:20)
[2021-11-04] VITALS (14 sets, daily range): BP systolic 116–143; BP diastolic 75–115; PULSE 80–102; RESP 14–18; TEMP 36.2–36.7; O2SAT 95–99
[2021-11-04] MEDS: HYDROcodone/acetaminophen (*CRX) 5-325 MG TABLET 1 TAB PO ×5 (02:30→19:41)
[2021-11-04 05:00] LABS: Hematocrit 41.2 % (42.0-52.0); Hemoglobin 13.2 g/dL (14.0-18.0); Mean Corpuscular Hemoglobin 29.9 pg (26-34); Mean Corpuscular Volume 93.4 fl (80-100); Mean Platelet Volume 10.8 fl (7.4-10.4); Platelet Count Result 212 k/mm3 (150-375); Red Blood Count 4.41 M/mm3 (4.6-6.20); Red Cell Distribution Width 13.7 % (11.5-14.5)
[2021-11-04 05:25] LABS: Albumin Level 3.4 g/dL (3.5-5.1); Anion Gap 5 mmol/L (8-16); Blood Urea Nitrogen 19 mg/dL (9-20); Calcium 8.3 mg/dL (8.4-10.2); Carbon Dioxide 30 mmol/L (22-30); Chloride 101 mmol/L (98-107); Estimated CRCL calculation 112 ml/min; Estimated Glomerular Filt Rate > 60; Glucose 95 mg/dL (65-110); Phosphorus 4.8 mg/dL (2.5-4.5); Sodium 136 mmol/L (137-145)
[2021-11-04] MEDS: TAMSULOSIN HCL 0.4 MG CAPSULE PO (08:34)
[2021-11-04] MEDS: allopurinoL 300 MG TABLET PO (08:34)
[2021-11-04] MEDS: METOPROLOL SUCCINATE EXT REL 100 MG TABCR PO (08:34)
[2021-11-04] MEDS: SERTRALINE HCL 50 MG TABLET 200 MG PO (08:34)
[2021-11-04] MEDS: FUROSEMIDE INJ 40 MG/4 ML VIAL IV PUSH ×2 (08:34→16:54)
[2021-11-04] MEDS: METOPROLOL SUCCINATE EXT REL 25 MG TABCR PO (08:34)
[2021-11-04] MEDS: amLODIPine BESYLATE 5 MG TABLET PO (08:35)
[2021-11-04] MEDS: APIXABAN 5 MG TABLET PO ×2 (08:35→16:55)
[2021-11-04] MEDS: ATORVASTATIN 40 MG TABLET PO (08:35)
[2021-11-04] MEDS: busPIRone HCL 10 MG TABLET PO ×2 (08:35→20:00)
[2021-11-04] MEDS: FLUTICASONE PROPIONATE 0.05% NA SPR 16 GM BTL (*BKC) 2 SPRAY NASAL (08:35)
[2021-11-04] MEDS: EMPAGLIFLOZIN 10 MG TABLET PO (08:35)
--- NOTE | 2021-11-04 12:17 | PM.PNCARD ---
Progress Note: A&P Assessment and Plan (1) CHF (congestive heart failure): Qualifiers: Heart failure chronicity: acute Heart failure type: combined systolic and diastolic Qualified Code(s): I50.41 - Acute combined systolic (congestive) and diastolic (congestive) heart failure Code(s): I50.9 - Heart failure, unspecified Status: Acute Assessment and Plan: Ideally, I would prefer to continue IV diuresis today. He has had a very nice response greater than -10 L fluid balance thus far. Accurate input and output, daily weight. CHF counseling. Patient continues to have significant lower extremity edema that is tender although improving and without exertional dyspnea. His exam is otherwise stable and clear to auscultation. All it is reasonable to consider discharge in transition to oral Lasix a 1st preference would be to continue diuresis as IV today with probable discharge tomorrow morning. Discussed with Dr. Lopez who also agrees. Would like to discharge home on Lasix 40 mg twice daily if patient agrees to stay today. Outpatient initiation of Entresto 49/52mg BID starting 11/05/21 PM. Jardiance 10 mg daily. (2) Atrial fibrillation: Qualifiers: Atrial fibrillation type: longstanding persistent Qualified Code(s): I48.11 - Longstanding persistent atrial fibrillation Code(s): I48.91 - Unspecified atrial fibrillation Status: Acute Assessment and Plan: Persistent, longstanding. Heart rate much better controlled are normal Toprol. Continue Toprol XL 125 mg daily. Continue systemic anticoagulation with Eliquis 5 mg twice daily for embolic stroke risk reduction. (3) Cardiomyopathy: Qualifiers: Cardiomyopathy type: unspecified Qualified Code(s): I42.9 - Cardiomyopathy, unspecified Code(s): I42.9 - Cardiomyopathy, unspecified Status: Acute Assessment and Plan: New diagnosis EF visually estimated approximately 45%. Discussed considerations including etiology mainly ischemic versus nonischemic. Possibly tachycardia induced cardiomyopathy he poor control of atrial fibrillation. Advised ischemic evaluation noninvasive ischemic initially as patient is not exhibiting any anginal symptoms and reports left heart catheterization with no significant reported CAD many years ago. Patient also indicates to me he would like to transfer his cardiovascular care to our practice. Follow-up in 2 weeks as an outpatient with Dr. Ross who originally evaluated this patient. (4) Hypertension: Code(s): I10 - Essential (primary) hypertension Status: Acute Assessment and Plan: Quite elevated this morning. Subjective Date/time seen: Date of service: 11/04/21 12:17 Interval history: 51yo male with hx of HTN, cAFib and HLD here for shortness of breath. Patient states he is feeling much better. Edema has improved leg discomfort persists but is notably improved as well. Denies orthopnea, PND, dizziness or exertional dyspnea. No chest pain or palpitations. Heart rate reasonably controlled in AFib on telemetry generally in the 90s. Patient inquired if he could be discharged home today. Review of Systems Constitutional: Constitutional: Reports no additional constitutional complaints Eyes: Eyes: Reports no additional eye complaints ENT: Reports system reviewed and no additional complaints, except as documented Cardiovascular: Cardiovascular: Reports as per HPI and Reports dyspnea on exertion Respiratory: Respiratory: Reports dyspnea on exertion Gastrointestinal: Gastrointestinal: Reports no additional gastrointestinal complaints Musculoskeletal: Musculoskeletal: Reports no additional musculoskeletal complaints Integumentary/Breasts: Skin/Breast: Reports system reviewed and no additional complaints, except as docu Neurologic: Reports system reviewed and no additional complaints, except as documented Endocrine: Endocrine: Reports no gumaro
--- NOTE | 2021-11-04 16:50 | PM.IMPN ---
Progress Note: A&P Assessment and Plan (1) CHF (congestive heart failure): Qualifiers: Heart failure chronicity: acute Heart failure type: combined systolic and diastolic Qualified Code(s): I50.41 - Acute combined systolic (congestive) and diastolic (congestive) heart failure Code(s): I50.9 - Heart failure, unspecified Status: Acute Assessment and Plan: Patient presents with shortness of breath and increasing pedal edema. CXR was clear but CTA chest did show congestive changes and small pleural effusions. BNP was 7490. He was started on Lasix 40 mg IV b.i.d. Echo showing EF 45% with severely enlarged left atrium and dilated inferior vena cava consistent with elevated right atrial pressure. He had indeterminate diastolic function. He has had excellent urine output since admission but remains edematous. Medications adjusted. Continue Toprol XL, Jardiance. Lisinopril stopped with plans to start Entresto after washout. Appreciate Cardiology input. Home tomorrow (2) Atrial fibrillation: Qualifiers: Atrial fibrillation type: longstanding persistent Qualified Code(s): I48.11 - Longstanding persistent atrial fibrillation Code(s): I48.91 - Unspecified atrial fibrillation Status: Acute Assessment and Plan: Patient has known chronic AFib. Heart rate mildly elevated on admission probably related to the fluid overload. He was switched to Toprol-XL. Heart rate has improved. He remains on Eliquis. Echo as mentioned above. Continue to monitor on telemetry. (3) Hypertension: Code(s): I10 - Essential (primary) hypertension Status: Acute Assessment and Plan: Patient's blood pressure was reviewed on 11/04. Blood pressure was elevated on admission but has improved. Medications being adjusted for his heart failure. Continue to monitor and adjust medications accordingly. (4) Hyperlipidemia: Code(s): E78.5 - Hyperlipidemia, unspecified Status: Acute Assessment and Plan: LFTs normal. We continued atorvastatin. (5) Obesity: Code(s): E66.9 - Obesity, unspecified Status: Acute Assessment and Plan: BMI is elevated. Lifestyle changes and education given. Dietitian consulted (6) Elevated d-dimer: Code(s): R79.89 - Other specified abnormal findings of blood chemistry Status: Acute Assessment and Plan: Dimer was 1.20. Venous Doppler neg bilaterally. CTA of the chest is negative for PE. COVID-19 nasal swab was negative. Patient has been on Eliquis as outpatient. Continue Eliquis. Subjective Date/time seen: 11/04/21 16:50 Interval history: 51yo male with hx of HTN, cAFib and HLD here for shortness of breath. No further episodes of feeling SOB. No CP. No n/v. Up walking in the room. Elevating the legs when at rest. Legs still feel tight Exam Narrative: AF 97.2 127/81 82 18 96% ra Gen - NARD up walking in the room on the phone Chest - CTA bilaterally, nml RR CV -irregularly irregular. Telemetry shows AFib with controlled rate Abd - Soft, NT/ND, Positive BS Ext -1-2+ bilateral lower extremity tense pitting pedal edema. Psych - Nml mood and affect Skin - Warm and dry Objective Data Vital Signs Vital Signs: Vital Signs - 24 hr 11/03/21 18:00 11/03/21 20:00 11/03/21 20:00 Temperature 97.7 F Pulse Rate 90 81 Respiratory Rate 20 Blood Pressure 137/80 Pulse Oximetry 97 Oxygen Delivery Room Air 11/04/21 00:00 11/04/21 00:00 11/03/21 20:00 Temperature 97.8 F Pulse Rate 92 96 Respiratory Rate 14 Blood Pressure 116/86 Pulse Oximetry 95 Oxygen Delivery Room Air 11/03/21 22:00 11/04/21 00:00 11/04/21 02:00 Temperature Pulse Rate 87 93 80 Respiratory Rate Blood Pressure Pulse Oximetry Oxygen Delivery 11/04/21 04:00 11/04/21 04:00 11/04/21 04:00 Temperature 97.3 F L Pulse Rate 83 94 Respiratory Rate 14 Blood Pre
[2021-11-04] MEDS: MELATONIN 5 MG TABLET 10 MG PO (21:34)
[2021-11-05] VITALS (11 sets, daily range): BP systolic 121–165; BP diastolic 83–114; PULSE 73–90; RESP 12–18; TEMP 36.3–36.8; O2SAT 97–100
[2021-11-05] MEDS: HYDROcodone/acetaminophen (*CRX) 5-325 MG TABLET 1 TAB PO ×3 (03:16→13:30)
[2021-11-05 06:08] LABS: Anion Gap 4 mmol/L (8-16); Blood Urea Nitrogen 18 mg/dL (9-20); Carbon Dioxide 31 mmol/L (22-30); Chloride 98 mmol/L (98-107); Estimated CRCL calculation 110 ml/min; Estimated Glomerular Filt Rate > 60; Glucose 96 mg/dL (65-110); Magnesium 2.1 mg/dL (1.6-2.3); Potassium 3.7 mmol/L (3.4-5.0); Sodium 133 mmol/L (137-145)
[2021-11-05] MEDS: ATORVASTATIN 40 MG TABLET PO (08:55)
[2021-11-05] MEDS: FLUTICASONE PROPIONATE 0.05% NA SPR 16 GM BTL (*BKC) 2 SPRAY NASAL (08:55)
[2021-11-05] MEDS: TAMSULOSIN HCL 0.4 MG CAPSULE PO (08:55)
[2021-11-05] MEDS: METOPROLOL SUCCINATE EXT REL 100 MG TABCR PO (08:55)
[2021-11-05] MEDS: amLODIPine BESYLATE 5 MG TABLET PO (08:55)
[2021-11-05] MEDS: APIXABAN 5 MG TABLET PO (08:55)
[2021-11-05] MEDS: SERTRALINE HCL 50 MG TABLET 200 MG PO (08:55)
[2021-11-05] MEDS: allopurinoL 300 MG TABLET PO (08:56)
[2021-11-05] MEDS: FUROSEMIDE INJ 40 MG/4 ML VIAL IV PUSH (08:56)
[2021-11-05] MEDS: EMPAGLIFLOZIN 10 MG TABLET PO (08:56)
[2021-11-05] MEDS: METOPROLOL SUCCINATE EXT REL 25 MG TABCR PO (08:56)
[2021-11-05] MEDS: busPIRone HCL 10 MG TABLET PO (08:56)
--- NOTE | 2021-11-05 12:48 | PM.PNCARD ---
Progress Note: A&P Assessment and Plan (1) CHF (congestive heart failure): Qualifiers: Heart failure chronicity: acute Heart failure type: combined systolic and diastolic Qualified Code(s): I50.41 - Acute combined systolic (congestive) and diastolic (congestive) heart failure Code(s): I50.9 - Heart failure, unspecified Status: Acute Assessment and Plan: Stable for discharge from cardiac perspective. He has had a very nice response greater than -14 L fluid balance thus far. Accurate input and output, daily weight. CHF counseling. Discussed with Dr. Lopez who also agrees. Discharged on Lasix 80 mg twice daily next 2 days in Lasix 40 mg twice daily for the next 5-7 days then 40 mg daily thereafter. Outpatient BMP in 1 week. Follow up with us in 2 weeks in the office. Outpatient initiation of Entresto 49/52mg BID starting 11/05/21 PM. Jardiance 10 mg daily. (2) Atrial fibrillation: Qualifiers: Atrial fibrillation type: longstanding persistent Qualified Code(s): I48.11 - Longstanding persistent atrial fibrillation Code(s): I48.91 - Unspecified atrial fibrillation Status: Acute Assessment and Plan: Persistent, longstanding. Heart rate much better controlled are normal Toprol. Continue Toprol XL 125 mg daily. Continue systemic anticoagulation with Eliquis 5 mg twice daily for embolic stroke risk reduction. (3) Cardiomyopathy: Qualifiers: Cardiomyopathy type: unspecified Qualified Code(s): I42.9 - Cardiomyopathy, unspecified Code(s): I42.9 - Cardiomyopathy, unspecified Status: Acute Assessment and Plan: New diagnosis EF visually estimated approximately 45%. Discussed considerations including etiology mainly ischemic versus nonischemic. Possibly tachycardia induced cardiomyopathy he poor control of atrial fibrillation. Advised ischemic evaluation noninvasive ischemic initially as patient is not exhibiting any anginal symptoms and reports left heart catheterization with no significant reported CAD many years ago. Patient also indicates to me he would like to transfer his cardiovascular care to our practice. Follow-up in 2 weeks as an outpatient with Dr. Ross who originally evaluated this patient. (4) Hypertension: Code(s): I10 - Essential (primary) hypertension Status: Acute Assessment and Plan: Quite elevated this morning. Subjective Date/time seen: Date of service: 11/05/21 12:48 Interval history: 51yo male with hx of HTN, cAFib and HLD here for shortness of breath. Patient states he is feeling much better. Edema improved and pain is even less compared to yesterday. He is making very good urine. Denies dizziness, chest pain or shortness of breath. States he otherwise feels well. Wearing compression stockings. Tolerating medical therapy. Heart rate controlled. Review of Systems Constitutional: Constitutional: Reports no additional constitutional complaints Eyes: Eyes: Reports no additional eye complaints ENT: Reports system reviewed and no additional complaints, except as documented Cardiovascular: Cardiovascular: Reports as per HPI and Reports dyspnea on exertion Respiratory: Respiratory: Reports dyspnea on exertion Gastrointestinal: Gastrointestinal: Reports no additional gastrointestinal complaints Musculoskeletal: Musculoskeletal: Reports no additional musculoskeletal complaints Integumentary/Breasts: Skin/Breast: Reports system reviewed and no additional complaints, except as docu Neurologic: Reports system reviewed and no additional complaints, except as documented Endocrine: Endocrine: Reports no additional endocrine complaints Hematologic/Lymphatic: Hematologic/Lymphatic: Reports no additional hematologic/lymphatic complaints Allergic/Immunologic: Allergic/Immunologic: Reports no additional allergic/immunologic complaints Exam Const: General: comfortable and no acute dist
--- NOTE | 2021-11-05 13:58 | PCNSR ---
On 11/05/21, the student, Amalia Castillo, provided care and completed [facility] documentation on this patient. I have reviewed the student's documentation and agree with the findings.
--- NOTE | 2021-11-05 15:15 | PM.DS ---
DS: Admitting Diagnosis Discharge Date 11/05/21 Admitting Diagnosis Shortness of breath DS: Discharge Diagnosis Discharge Diagnosis (1) CHF (congestive heart failure): Qualifiers: Heart failure chronicity: acute Heart failure type: combined systolic and diastolic Qualified Code(s): I50.41 - Acute combined systolic (congestive) and diastolic (congestive) heart failure Code(s): I50.9 - Heart failure, unspecified Status: Acute Assessment and Plan: Patient presents with shortness of breath and increasing pedal edema. CXR was clear but CTA chest did show congestive changes and small pleural effusions. BNP was 7490. Echo showing EF 45% with severely enlarged left atrium and dilated inferior vena cava consistent with elevated right atrial pressure. He had indeterminate diastolic function. It was felt that he had new onset systolic CHF. He was started on Lasix 40 mg IV b.i.d. He has had excellent urine output since admission with improvement in his edema. Medications adjusted. Home with Toprol XL, Jardiance, Entresto. Appreciate Cardiology input. CHF teaching. Dietary information provided. (2) Atrial fibrillation: Qualifiers: Atrial fibrillation type: longstanding persistent Qualified Code(s): I48.11 - Longstanding persistent atrial fibrillation Code(s): I48.91 - Unspecified atrial fibrillation Status: Acute Assessment and Plan: Patient has known chronic AFib. Heart rate mildly elevated on admission probably related to the fluid overload. He was switched to Toprol-XL. Heart rate improved. He remained on Eliquis. Echo as mentioned above. (3) Hypertension: Code(s): I10 - Essential (primary) hypertension Status: Acute Assessment and Plan: Patient's blood pressure was monitored closely. BP was elevated on admission but has improved. Medications were adjusted which he tolerated well. Blood pressure still high at times but Entresto to be added after discharge. Patient to continue to monitor blood pressure at home. (4) Hyperlipidemia: Code(s): E78.5 - Hyperlipidemia, unspecified Status: Acute Assessment and Plan: LFTs were normal. We continued atorvastatin. (5) Obesity: Code(s): E66.9 - Obesity, unspecified Status: Acute Assessment and Plan: BMI is elevated. Lifestyle changes and education given. Dietitian provide information as well. (6) Elevated d-dimer: Code(s): R79.89 - Other specified abnormal findings of blood chemistry Status: Acute Assessment and Plan: Dimer was 1.20. Venous Doppler neg bilaterally. CTA of the chest is negative for PE. COVID-19 nasal swab was negative. Patient has been on Eliquis as outpatient. We continued Eliquis. DS: Summary Hospital Course Reason for hospitalization: 51yo male with hx of HTN, cAFib and HLD here for shortness of breath. Please see H&P for details Hospital Course: Please see above for details of hospital course Status at Discharge Cognitive/behavioral status at discharge: Stable Time Spent with Patient Time attestation: Total time spent providing and/or coordinating discharge services: 35 minutes Exam Narrative: AF 98.2 121/101 77 18 99% ra Gen - NARD up walking in the room Chest - CTA bilaterally, nml RR CV -irregularly irregular. Telemetry shows AFib with controlled rate and occasional PVC Abd - Soft, NT/ND, Positive BS Ext -1+ bilateral lower extremity; Wade hose in place Psych - Nml mood and affect Skin - Warm and dry DS: Data Data Completed and Pending Labs on day of discharge: Labs from last 24 hours 11/05/21 04:48 Sodium 133 L Potassium 3.7 Chloride 98 Carbon Dioxide 31 H Anion Gap 4 L BUN 18 Creatinine 1.10 Estim Creat Clear Calc 110 Estimated GFR > 60 Glucose 96 Calcium 8.0 L Magnesium 2.1 Discharge Plan Discharge Attending physician on disc
== END 2021-11-05 16:45 | disposition home or self-care (01) | DRG 291 ==
LOC: ANHED 12:02 → ANHIMU 14:35
PROVIDERS: Emergency Medicine; Admitting Provider Chiropractor; Emergency Provider Emergency Medicine; PCP Internal Medicine; Visit Provider Internal Medicine
DX: I11.0 Hypertensive heart disease with heart failure (principal); I50.41 Acute combined systolic (congestive) and diastolic (congestive) heart failure; I48.11 Longstanding persistent atrial fibrillation; Z20.822 Contact with and (suspected) exposure to COVID-19; I42.9 Cardiomyopathy, unspecified; F17.290 Nicotine dependence, other tobacco product, uncomplicated; M10.9 Gout, unspecified; E78.5 Hyperlipidemia, unspecified; R79.89 Other specified abnormal findings of blood chemistry; E66.9 Obesity, unspecified; Z68.36 Body mass index [BMI] 36.0-36.9, adult; Z79.899 Other long term (current) drug therapy
CPT/HCPCS: 36415; 71046; 71275; 80048; 80053; 80069; 83735; 83880; 84443; 84484; 85025; 85027; 85380; 85610; 85730; 93005; 93971; 96374; 96375; 96376; 99285; A9270; C8929; C9803; G0378; J0360; J1940; Q9957; Q9967; U0003; U0005

== ENCOUNTER 2022-04-30 08:59 | Emergency (ER) | payer SELFPAY ==
--- NOTE | 2022-04-30 09:00 | ED.DENTAL ---
HPI - Dental/Oral General Chief complaint: Dental/Oral Stated complaint: tooth pain Time Seen by Provider: 04/30/22 08:59 Source: patient Mode of arrival: ambulatory Limitations: no limitations History of Present Illness HPI Narrative: Tobi is a 51-year-old male patient presenting to the clinic today with complaints of a toothache since Tuesday. He reports it has gradually got worse. He has taken Advil for the pain and this does not really help relieve any pain. States the pain is currently a 11/01. His blood pressure is also elevated in the clinic 183/122- he reports that he did not take his blood pressure medicines this morning and plans to take them when he gets home today. He denies any headache, shortness of breath, chest pain, or dizziness Related Data Home Medications Medication Instructions Recorded Confirmed allopurinol 300 mg tablet 300 mg PO DAILY 06/04/21 04/30/22 fluticasone propionate 50 2 spray intranasal DAILY 06/04/21 11/02/21 mcg/actuation nasal spray,suspension (Allergy Relief (fluticasone)) Vitamin D3 1.25 mg PO WEEKLY 11/02/21 04/30/22 amlodipine 5 mg tablet 5 mg PO DAILY 11/02/21 04/30/22 apixaban 5 mg tablet (Eliquis) 5 mg PO BID 11/02/21 04/30/22 atorvastatin 40 mg tablet 40 mg PO DAILY 11/02/21 04/30/22 buspirone 10 mg tablet 10 mg PO BID 11/02/21 04/30/22 melatonin 1 mg tablet 10 mg PO HS PRN Insomnia 11/02/21 04/30/22 polyethylene glycol 3350 17 gram 17 g PO DAILY 11/02/21 11/02/21 oral powder packet sertraline 100 mg tablet 200 mg PO DAILY 11/02/21 04/30/22 tamsulosin 0.4 mg capsule 0.4 mg PO DAILY 11/02/21 04/30/22 Allergies Allergy/AdvReac Type Severity Reaction Status Date / Time No Known Allergies Allergy Unknown Verified 04/30/22 09:10 Review of Systems Review of Systems: Pertinent positives per HPI. Patient denies any fever, chills, rash, headache, visual changes, dizziness, cough, runny nose, sore throat, shortness of breath, chest pain, palpitations, nausea, vomiting, diarrhea, constipation, abdominal pain, or any urinary issues. [facility] Past Medical History Medical History Atrial fibrillation History of cardioversion Hyperlipidemia Hypertension Impingement of right knee joint Joint effusion Right knee Obesity Surgical History Surgical History History of synovectomy (~06/10/21) right arthroscopic synovectomy History of total knee replacement (~09/2016) right knee Family History Family History Father Hypertension Mother Hypertension Sibling Hypertension Other Diabetes mellitus Social History Social History Social History: Patient is currently going through a divorce and has two boys 02/03. His mother is his surrogate Ml. He lives by his self and wishes to be a full code at this time. Smoking status: Light tobacco smoker Tobacco type: cigars Additional smoking assessment comments: 1-2 cigars/day Alcohol intake: current Drinks per week: 7 Substance use: never Substance use type: marijuana Additional occupation/education comments: [employer] Gender identity (if verbalized by the patient): Male Sexual Orientation (if Verbalized by the Patient): Straight or Heterosexual Spiritual care concerns: No Agree to blood products: Yes Comments At the time of my signature, I reviewed and agree with the nursing past medical, surgical, social, and family history. There is no relevant family history pertinent to the patient complaint. Exam Narrative: General: Well-developed, well nourished, in no apparent distress Head: Normocephalic, atraumatic Eyes: Pupils equally round and reactive to light bilaterally, EOM intact, sclera and conjunctive clear, no discharge, lids normal
[2022-04-30 09:04] VITALS: BP 183/122; PULSE 69; RESP 18; TEMP 36.9; O2SAT 100
[2022-04-30 09:15] VITALS: BP 190/120
== END 2022-04-30 09:15 | disposition home or self-care (01) ==
PROVIDERS: Emergency Provider Nurse Practitioner Family; PCP Internal Medicine
DX: K08.89 Other specified disorders of teeth and supporting structures (principal); F17.290 Nicotine dependence, other tobacco product, uncomplicated; I48.91 Unspecified atrial fibrillation; E78.5 Hyperlipidemia, unspecified; I10 Essential (primary) hypertension; E66.9 Obesity, unspecified; Z68.33 Body mass index [BMI] 33.0-33.9, adult
CPT/HCPCS: 99213; G0463

== ENCOUNTER 2022-05-03 07:08 | Observation (INO) | payer SELFPAY ==
[2022-05-03] VITALS (38 sets, daily range): BP systolic 138–218; BP diastolic 86–160; PULSE 71–93; RESP 11–24; TEMP 36.3–36.6; O2SAT 96–100; BMI 36.1; BMI 35.9
--- NOTE | ~2022-05-03 | NM_ITS ---
EXAMINATION: NM stress w perf spect multi DATE: 05/05/2022 13:40 INDICATION: Chest pain TECHNIQUE: Rest images were obtained following intravenous administration of 9.3 mCi Tc99m tetrofosmi n ([employer]). The patient performed an exercise activity. At peak exercise, 29.1 mCi Tc99m tetrofosmin ([employer]) was administered intravenously, and stress images were obtained. Data was reconstructed in to short axis and horizontal and vertical long axis SPECT images. Gated SPECT images were also obtain ed. COMPARISON: None. FINDINGS: There is normal left ventricular perfusion without definite evidence of reversible or fixed perfusion abnormality to suggest ischemia or infarction. There is normal left ventricular chamber size with d iffuse hypokinesis resulting in decreased left ventricular ejection fraction measuring 31%. IMPRESSION: 1. Normal myocardial perfusion at rest and during stress. 2. Global hypokinesis with decreased left ventricular ejection fraction measuring 31%. Reviewed, dictated and finalized at location A. UNITY SUPPORT ASSOCIATE IMPRESSION: 1. Normal myocardial perfusion at rest and during stress. 2. Global hypokinesis with decreased left ventricular ejection fraction measuri ng 31%.
--- NOTE | ~2022-05-03 | CT_ITS ---
EXAMINATION: CTA chest PE protocol DATE: 05/03/2022 10:29 INDICATION: Chest pain and dyspnea TECHNIQUE: Computed tomography (CT) pulmonary angiogram of the chest was performed with 100 mL Omnipa que-350 intravenous contrast. Additional 3D reconstructions utilizing coronal maximum intensity proje ction (MIP) were performed. Automated exposure control and iterative reconstruction technique were em ployed. The dose-length product was 1065.40 mGy-cm. COMPARISON: 11/02/2021 FINDINGS: No pulmonary embolism. No pulmonary embolism, pneumonia or pleural effusion. Mild mosaic attenuation in the dependent lungs consistent with passive atelectasis with small subsegmental regions of more erica cent air trapping related to small airway disease. Heart size is normal. No pericardial effusion. Tho racic aorta is normal in caliber. Interval improvement in prior right hilar lymphadenopathy and resol ution of prior mediastinal lymphadenopathy. Visualized upper abdomen is unremarkable. Mild to moderat e thoracic spondylosis. IMPRESSION: 1. No pulmonary embolism or other acute cardiopulmonary disease. Reviewed, dictated and finalized at location A. BANDER
--- NOTE | ~2022-05-03 | XR_ITS ---
EXAMINATION: XR chest 2V DATE: 05/03/2022 08:03 INDICATION: Shortness of breath. TECHNIQUE: Frontal and lateral views of the chest were obtained on 3 radiographs. COMPARISON: Chest 2 views 11/02/2021, chest CT 11/02/2021 FINDINGS: The chest demonstrates clear lungs without pneumonia, pleural effusion, or pneumothorax. Th e heart size is normal. IMPRESSION: 1. No acute cardiopulmonary disease. Reviewed, dictated and finalized at location A. ROL TOWER OPERATOR
--- NOTE | 2022-05-03 07:12 | ECG_ITS ---
Measurements Intervals [place] Rate: 88 P: GA: 0 QRS: 54 QRSD: 103 T: 73 QT: 391 QTc: 473 Interpretive Statements ATRIAL FIBRILLATION BORDERLINE R WAVE PROGRESSION, ANTERIOR LEADS BORDERLINE T WAVE ABNORMALITY- HIGH LATERAL LEADS BASELINE WANDER- I, III, V4-V6 ABNORMAL ECG COMPARED TO ECG 11/02/2021 14:59:31 HEART RATE HAS DECREASED Electronically Signed On 05-03-2022 7:49:31 LOCOMOTIVE REPAIRER DIESEL by Flaco Galdamez D.O.
--- NOTE | 2022-05-03 07:21 | ED.CHESTPAIN ---
HPI - Chest Pain General Chief Complaint: Chest Pain Stated Complaint: CP, SOB Time Seen by Provider: 05/03/22 07:10 Source: RN notes reviewed History of Present Illness HPI narrative: Patient presents emergency department from home for chest pain. Patient states pain began 315 this morning. The pain is located over the left side of the chest and does not radiate described as a pressure in nature. States is associated with shortness of breath. States he does have a history of atrial fibrillation and is on blood thinners for this he also states he is on normal daily medication but did not take any of his meds this morning. 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 He denies any previous history of coronary artery disease Related Data Home Medications Medication Instructions Recorded Confirmed fluticasone propionate 50 2 spray intranasal DAILY 06/04/21 11/02/21 mcg/actuation nasal spray,suspension (Allergy Relief (fluticasone)) Vitamin D3 1.25 mg PO WEEKLY 11/02/21 04/30/22 amlodipine 5 mg tablet 5 mg PO DAILY 11/02/21 04/30/22 atorvastatin 40 mg tablet 40 mg PO DAILY 11/02/21 04/30/22 metoprolol succinate 100 mg 100 mg PO BID 05/03/22 tablet,extended release 24 hr (Toprol XL) Allergies Allergy/AdvReac Type Severity Reaction Status Date / Time No Known Allergies Allergy Unknown Verified 05/03/22 07:34 Review of Systems Review of Systems: Gen.: Denies fevers or chills ENT: Denies congestion Respiratory: Reports shortness of breath CV: Reports chest pain GI: Denies abdominal pain nausea, emesis or diarrhea Musculoskeletal: Denies back pain or muscle pain Neuro: Denies numbness, tingling, weakness or focal weakness Skin: Denies rash Except as documented, all other systems reviewed and negative [facility] Past Medical History Medical History Atrial fibrillation History of cardioversion Hyperlipidemia Hypertension Impingement of right knee joint Joint effusion Right knee Obesity Surgical History Surgical History History of synovectomy (~02/16/22) right arthroscopic synovectomy History of total knee replacement (~09/2016) right knee Family History Family History Father Hypertension Mother Hypertension Sibling Hypertension Other Diabetes mellitus Social History Social History Social History: Patient is currently going through a divorce and has two boys 02/03. His mother is his surrogate Ml. He lives by his self and wishes to be a full code at this time. Smoking status: Light tobacco smoker Tobacco type: cigars Additional smoking assessment comments: 1-2 cigars/day Alcohol intake: current Drinks per week: 7 Substance use: never Substance use type: marijuana Additional occupation/education comments: [employer] Gender identity (if verbalized by the patient): Male Sexual Orientation (if Verbalized by the Patient): Straight or Heterosexual Spiritual care concerns: No Agree to blood products: Yes Exam Narrative: APPEARANCE: No acute distress, nontoxic, resting in bed EYES: EOMI HEENT: Normocephalic, atraumatic, OMM RESPIRATORY: No respiratory distress Clear to auscultation bilaterally with no rhonchi wheezing or rales. CARDIOVASCULAR: Irregular irregular without murmurs rubs or gallops. ABDOMINAL: Soft, nontender, nondistended, no rebound or guarding MUSCULOSKELETAl: Moves all extremities. No clubbing, cyanosis or edema. NEURO: Awake and alert. Following commands, speech normal, no focal deficits SKIN:: Warm, dry. No rashes lesions or abrasions PSYCHIATRIC: Normal affect/mood, Course C
[2022-05-03 07:35] LABS: Basophils Absolute Auto 0.1 K/mm3 (0.0-0.1); Basophils Percent Auto 0.8 % (0.2-1.2); Eosinophils Absolute Auto 0.2 K/mm3 (0-0.3); Eosinophils Percent Auto 2.6 % (0-4.4); Hematocrit 46.6 % (42.0-52.0); Hemoglobin 16.5 g/dL (14.0-18.0); Immature Granulocyte Absolute 0.02 K/mm3 (0.00-0.031); Immature Granulocyte Percent A 0.3 % (0-0.5); Lymphocytes Absolute Auto 1.98 K/mm3 (0.9-3.2); Lymphocytes Percent Auto 25.4 % (18.3-44.2); Mean Corpuscular HGB Conc 35.4 g/dl (32-36); Mean Corpuscular Hemoglobin 31.6 pg (26-34); Mean Corpuscular Volume 89.3 fl (80-100); Mean Platelet Volume 11.1 fl (7.4-10.4); Monocytes Absolute Auto 0.6 K/mm3 (0.1-0.6); Monocytes Percent Auto 7.7 % (2.6-8.5); Neutrophils Absolute Auto 4.9 K/mm3 (1.3-6.7); Neutrophils Percent Auto 63.2 % (45.5-73.1); Platelet Count Result 231 k/mm3 (150-375); Red Blood Count 5.22 M/mm3 (4.6-6.20); Red Cell Distribution Width 13.2 % (11.5-14.5); White Blood Count 7.8 K/mm3 (4.5-10.0)
[2022-05-03] MEDS: amLODIPine BESYLATE 5 MG TABLET PO (07:35)
[2022-05-03] MEDS: ASPIRIN 81 MG CHEWABLE TABLET 324 MG PO (07:35)
[2022-05-03 08:09] LABS: Partial Thromboplastin Time 26.2 SECONDS (22.3-36.8); Prothrombin Time 12.9 Seconds (11.1-14.7)
[2022-05-03] MEDS: METOPROLOL SUCCINATE EXT REL 100 MG TABCR PO (08:10)
[2022-05-03 09:03] LABS: Alanine Aminotransferase 28 U/L (6-50); Albumin Level 4.2 g/dL (3.5-5.1); Alkaline Phosphatase 102 U/L (38-126); Anion Gap 8 mmol/L (8-16); Aspartate Amino Transferase 29 U/L (17-59); Blood Urea Nitrogen 15 mg/dL (9-20); Calcium 8.9 mg/dL (8.4-10.2); Carbon Dioxide 30 mmol/L (22-30); Chloride 101 mmol/L (98-107); Estimated CRCL calculation 101 ml/min; Estimated Glomerular Filt Rate > 60; Glucose 107 mg/dL (65-110); Lipase 54 U/L (23-300); Sodium 139 mmol/L (137-145)
[2022-05-03 09:14] LABS: NT Pro B Type Natriuretic Pept 2190 pg/mL (5-100); Troponin I < 0.012 ng/mL (0.000-0.034)
[2022-05-03 11:13] LABS: Troponin I < 0.012 ng/mL (0.000-0.034)
[2022-05-03] MEDS: FUROSEMIDE INJ 40 MG/4 ML VIAL IV PUSH (11:17)
[2022-05-03] MEDS: MORPHINE SULFATE (*CRX) 2 MG/ML INJ IV PUSH ×3 (11:17→23:42)
[2022-05-03] MEDS: SACUBITRIL/VALSARTAN 49-51 MG TABLET 1 TABLET PO ×2 (11:18→22:20)
[2022-05-03 11:40] LABS: Influenza A QL RT-PCR Negative (Negative); Influenza B QL RT-PCR Negative (Negative); SARS-CoV-2 RNA PCR Negative
--- NOTE | 2022-05-03 13:32 | PC.NURSE ---
Ordered a pt tray at 3523
--- NOTE | 2022-05-03 13:47 | PM.IMHP ---
H&P: HPI History of Present Illness Date/Time: 05/03/22 13:47 Chief Complaint: Chest pain shortness a breath Narrative: This is a 51 year old male patient who has a history of congestive heart failure. Who the patient stated he has been taking his medication without difficulty and he has been watching his diet. The patient stated that he did have an increase of edema to his lower extremities. Patient stated that he was lying in bed early this morning and he developed left-sided chest pain that did not radiate it down his arm surface neck. The patient does follow with a manager distribution center here. He denied any nausea vomiting or diarrhea. No fever chills. The patient does have a history of atrial fibrillation and is not on any blood thinners. The patient had been cardioverted back into sinus rhythm in the past. Patient initially thought that maybe he was in atrial fibrillation with RVR. EKG was read as atrial fibrillation with heart rate in the 80s. His last echo was on . He see EF of 45%. Chest CTA was read as no pulmonary embolism or other acute cardiopulmonary disease. Chest x-ray was read as no acute cardiopulmonary disease. Troponins were nonreactive at this point. BNP is 2190. He was negative for influenza a B and COVID. The patient is being admitted to observation status on the date of service of 05/03/2022. Review of Systems Review of Systems: See HPI All systems reviewed & are unremarkable except as noted in HPI and below Constitutional: Constitutional: Reports as per HPI and Reports no additional constitutional complaints Eyes: Eyes: Reports as per HPI and Reports no additional eye complaints ENT: Reports system reviewed and no additional complaints, except as documented and Reports Normal hearing present Cardiovascular: Cardiovascular: Reports no additional cardiovascular complaints Respiratory: Respiratory: Reports no additional respiratory complaints and Reports no additional respiratory complaints Gastrointestinal: Gastrointestinal: Reports as per HPI and Reports no additional gastrointestinal complaints Musculoskeletal: Musculoskeletal: Reports no additional musculoskeletal complaints Integumentary/Breasts: Skin/Breast: Reports system reviewed and no additional complaints, except as docu and Reports as per HPI Neurologic: Reports system reviewed and no additional complaints, except as documented, Reports as per HPI and Reports Normal hearing present Psychiatric: Psychiatric: Reports no additional psychiatric complaints and Reports as per HPI Endocrine: Endocrine: Reports no additional endocrine complaints Hematologic/Lymphatic: Hematologic/Lymphatic: Reports no additional hematologic/lymphatic complaints Allergic/Immunologic: Allergic/Immunologic: Reports no additional allergic/immunologic complaints [facility] Past Medical History Medical History (Updated 05/03/22 @ 17:15 by Tammie Bahena NP) Atrial fibrillation History of cardioversion Hyperlipidemia Hypertension Impingement of right knee joint Joint effusion Right knee Obesity Painful total knee replacement, right Surgical History Surgical History H/O shoulder surgery History of synovectomy (~06/10/21) right arthroscopic synovectomy History of total knee replacement (~09/2016) right knee Family History Family History Father Hypertension Mother Hypertension Sibling Hypertension Other Diabetes mellitus Social History Social History (Updated 05/03/22 @ 17:07 by Tammie Bahena NP) Social History: Patient is currently going through a divorce and has two boys 02/03. His mother is his surrogate Ml. He lives by his self and wishes to be a full code at this time. He works for [employer]. Code status full code Smoking status: Light tobacco smoker Tobacco type: cigars Additional smoking assessment
[2022-05-03 16:07] LABS: Troponin I 0.017 ng/mL (0.000-0.034)
[2022-05-03] MEDS: FAMOTIDINE 20 MG/2 ML VIAL IV PUSH (19:53)
[2022-05-03] MEDS: hydrALAZINE HCL 20 MG/ML VIAL 10 MG IV PUSH (19:55)
[2022-05-03] MEDS: METOPROLOL TARTRATE INJ 5 MG/5 ML VIAL IV PUSH (21:41)
[2022-05-03] MEDS: HYDROcodone/acetaminophen (*CRX) 5-325 MG TABLET 1 TAB PO (21:41)
[2022-05-03] MEDS: APIXABAN 5 MG TABLET PO (22:20)
--- NOTE | 2022-05-03 22:57 | ECG_ITS ---
Measurements Intervals [place] Rate: 77 P: MO: 0 QRS: 54 QRSD: 96 T: 107 QT: 379 QTc: 431 Interpretive Statements ATRIAL FIBRILLATION BORDERLINE ST-T WAVE ABNORMALITY- LAT/HIGH LAT LEADS BASELINE ARTIFACT- I, II, III, AVR, AVL, AVF ABNORMAL ECG COMPARED TO ECG 05/03/2022 07:15:59 NO SIGNIFICANT CHANGES Electronically Signed On 05-04-2022 8:00:57 [employer]F CLUB HEAD INSPECTOR by Flaco Galdamez D.O.
[2022-05-04] VITALS (19 sets, daily range): BP systolic 110–155; BP diastolic 70–101; PULSE 73–97; RESP 17–20; TEMP 35.9–36.7; O2SAT 98–99
--- NOTE | 2022-05-04 | ECHO_ITS ---
Patient Info Name: Tobi Valles Age: 51 years : 1970 Gender: Male Ht: 78 in Wt: 310 lbs BSA: 2.82 m2 HR: 84 bpm BP: 125 / 81 mmHg Heart Rhythm: Atrial Fibrillation Technical Quality: Fair Exam Date: 05/04/2022 2:07 PM Exam Location: [facility] Patient Status: Inpatient Admit Date: 05/03/2022 Staff Ordering Physician: Echo Alfaro MD (trav/enrique) International Specialist: Shoshana Carballo RDCS Attending Provider: Eulalia Barnhart MD Referring Physician: Dominic LOCKHART; Exam Type: CA echo dop color flow w con Study Info Indications R07.9 - Chest pain, unspecified Complete two-dimensional, color flow and Doppler transthoracic echocardiogram is performed with contrast to opacify the left ventricle and to improve the deliniation of the left ventricle endocardial borders. Contrast/Agitated Saline Contrast/Ag. Saline: Definity Amount: 3.00 ml Administered By: Shoshana Carballo RDCS Existing IV Access: Yes IV Access Condition: patent with no signs of infiltration Summary 1. Left ventricular systolic function is normal, estimated at 50-55%. 2. There is mildly increased left ventricular wall thickness. 3. Right ventricular systolic function is normal. 4. Left atrial chamber dimension is mildly enlarged. 5. Right atrial chamber dimension is mildly enlarged. 6. There is trace mitral valve regurgitation. 7. There is trace tricuspid valve regurgitation. Left Ventricle Left ventricular chamber dimension is normal. Left ventricular systolic function is normal, estimated at 50-55%. There is mildly increased left ventricular wall thickness. Right Ventricle Right ventricular chamber dimension is normal. Right ventricular systolic function is normal. Left Atria Left atrial chamber dimension is mildly enlarged. Right Atria Right atrial chamber dimension is mildly enlarged. Atrial Septum Intact interatrial septum visualized by color flow imaging. Aortic Valve The aortic valve is probable trileaflet. There is no aortic valve stenosis. There is no aortic valve regurgitation. Pulmonic Valve The pulmonic valve is not well visualized. Mitral Valve The mitral valve has thickened leaflets. There is trace mitral valve regurgitation. The mitral valve annulus is mildly calcified. Tricuspid Valve The tricuspid valve leaflets are normal. There is trace tricuspid valve regurgitation. Pericardium/Pleural There is no pericardial effusion. Aorta The aortic root size at the sinus of Valsalva is normal. Left Ventricular Outflow Tract Name Value Normal LVOT 2D LVOT Diameter 2.28 cm LVOT Doppler LVOT Peak Gradient 2 mmHg LVOT Mean Gradient 1 mmHg LVOT VTI 13.07 cm LVOT VTI/AV VTI Ratio 0.76 LVOT Stroke Volume 53.18 ml LVOT CO 13.58 l/min LVOT CI 4.81 L/min/m2 Pulmonic Valve
[2022-05-04] MEDS: MORPHINE SULFATE (*CRX) 2 MG/ML INJ IV PUSH ×6 (03:20→20:44)
[2022-05-04 05:38] LABS: Basophils Absolute Auto 0.1 K/mm3 (0.0-0.1); Basophils Percent Auto 1.1 % (0.2-1.2); Eosinophils Absolute Auto 0.2 K/mm3 (0-0.3); Eosinophils Percent Auto 3.1 % (0-4.4); Hematocrit 50.9 % (42.0-52.0); Hemoglobin 17.3 g/dL (14.0-18.0); Immature Granulocyte Absolute 0.02 K/mm3 (0.00-0.031); Immature Granulocyte Percent A 0.3 % (0-0.5); Lymphocytes Percent Auto 20.1 % (18.3-44.2); Mean Corpuscular Hemoglobin 31.1 pg (26-34); Mean Corpuscular Volume 91.5 fl (80-100); Mean Platelet Volume 11.1 fl (7.4-10.4); Monocytes Absolute Auto 0.7 K/mm3 (0.1-0.6); Neutrophils Percent Auto 66.4 % (45.5-73.1); Platelet Count Result 231 k/mm3 (150-375); Red Blood Count 5.56 M/mm3 (4.6-6.20); Red Cell Distribution Width 13.2 % (11.5-14.5); White Blood Count 7.5 K/mm3 (4.5-10.0)
[2022-05-04] MEDS: amLODIPine BESYLATE 5 MG TABLET PO (08:31)
[2022-05-04] MEDS: APIXABAN 5 MG TABLET PO ×2 (08:31→20:42)
[2022-05-04] MEDS: FAMOTIDINE 20 MG/2 ML VIAL IV PUSH ×2 (08:31→20:42)
[2022-05-04] MEDS: ATORVASTATIN 40 MG TABLET PO (08:31)
[2022-05-04] MEDS: EMPAGLIFLOZIN 10 MG TABLET PO (08:31)
[2022-05-04] MEDS: FUROSEMIDE INJ 40 MG/4 ML VIAL IV PUSH (08:32)
[2022-05-04] MEDS: FLUTICASONE PROPIONATE 0.05% NA SPR 16 GM BTL (*BKC) 2 SPRAY NASAL (08:32)
[2022-05-04] MEDS: METOPROLOL SUCCINATE EXT REL 100 MG TABCR PO ×2 (08:32→20:42)
[2022-05-04] MEDS: SACUBITRIL/VALSARTAN 49-51 MG TABLET 1 TABLET PO ×2 (08:32→20:42)
[2022-05-04 09:30] LABS: Magnesium 1.9 mg/dL (1.6-2.3)
--- NOTE | 2022-05-04 12:36 | PM.CNCAR ---
Assessment and Plan Assessment and plan (1) Chest pain: Code(s): R07.9 - Chest pain, unspecified Status: Acute (2) Cardiomyopathy: Qualifiers: Cardiomyopathy type: unspecified Qualified Code(s): I42.9 - Cardiomyopathy, unspecified Code(s): I42.9 - Cardiomyopathy, unspecified Status: Acute (3) Atrial fibrillation: Qualifiers: Atrial fibrillation type: longstanding persistent Qualified Code(s): I48.11 - Longstanding persistent atrial fibrillation Code(s): I48.91 - Unspecified atrial fibrillation Status: Acute (4) Hypertension: Code(s): I10 - Essential (primary) hypertension Status: Acute (5) Hyperlipidemia: Code(s): E78.5 - Hyperlipidemia, unspecified Status: Acute Plan Will obtain TTE. Will plan for stress MPI 05/05. Patient to be NPO after midnight. Continue with home meds of Amlodipine, Eliquis, Atorvastatin, Jardiance, Entresto, Toprol. At this time, patient has clear lung sounds and no lower extremity edema. I will stop his IV Lasix. Monitor I/Os. Can spot dose with Lasix if needed. His BP was as high as 218/136 when he presented. BP improved, but still elevated. Will add Aldactone. History of Present Illness History of Present Illness Consult date/time: 05/04/22 12:36 Requesting physician: Donato Wong DO Consult reason: chest pain Reason For Visit: Chest Pain Narrative: We are being consulted for chest pain. This is a 51-year-old male who we last saw in 10/2021. At that time he was found with LVEF 45%. Treated for decompensated heart failure. Was started on Entresto, Metoprolol, Jardiance. Also has atrial fibrillation on rate control with Toprol and Eliquis for stroke prophylaxis. After discharge, patient followed up with a wine merchant in [place]. Patient presents this time with chest pain that woke him up from sleep yesterday morning at 3:30 AM. Chest pain persisted until he got to the ED here. Has been chest pain free since then. No radiation of chest pain. Had some shortness of breath. Walked around his hospital room and did okay with that without having chest pain. No lower extremity edema. Troponins here were negative. BNP elevated at 2190. CXR and CTA unremarkable. EKGs show rate-controlled atrial fibrillation without ischemic changes. He has been getting IV Lasix since admission. Review of Systems Review of Systems: 12-point ROS obtained. Negative, unless stated in HPI. [facility] Past Medical History Medical History Atrial fibrillation History of cardioversion Hyperlipidemia Hypertension Impingement of right knee joint Joint effusion Right knee Obesity Painful total knee replacement, right Surgical History Surgical History H/O shoulder surgery History of synovectomy (~06/10/21) right arthroscopic synovectomy History of total knee replacement (~09/2016) right knee Family History Family History Father Hypertension Mother Hypertension Sibling Hypertension Other Diabetes mellitus Social History Social History Social History: Patient is currently going through a divorce and has two boys 02/03. His mother is his surrogate Ml. He lives by his self and wishes to be a full code at this time. He works for [employer]. Code status full code Smoking status: Former smoker Tobacco type: cigarettes Additional smoking assessment comments: 1-2 cigars/day Alcohol intake: current Drinks per week: 7 Substance use: never Substance use type: marijuana Lack of Transportation: No Lack of Food: Sometimes True Current Housing: I Have Housing Concerned About Future Housing: No Difficulty Paying Gas/Electric Bills: No Difficulty Paying for Meds: No Currently U
[2022-05-04] MEDS: SPIRONOLACTONE 25 MG TABLET PO (13:05)
[2022-05-04] MEDS: PERFLUTREN LIPID MICROSPHERES 1.5 ML VIAL DILUTED TO 10 ML TOTAL VOLUME IV PUSH (14:43)
--- NOTE | 2022-05-04 14:43 | IVDEFINITY ---
Prior to administration of IV Definity the patient was educated on the risks and benefits of the imaging enhancing agent including potential adverse side effects. The patient verbalized understanding. Allergies were verified. No exclusion criteria were identified and at least one of the following inclusion criteria were met: 1) physician request, 2) patient technically difficult to image (per the [place] [employer] Echocardi[employer] guidelines of two or more segments not discernable within the apical view), or 3) questionable left ventricular function. ?
--- NOTE | 2022-05-04 16:03 | PM.IMPN ---
Progress Note: A&P Assessment and Plan (1) Chest pain: Code(s): R07.9 - Chest pain, unspecified Status: Acute Assessment and Plan: . -cardiology consultation with greatly be appreciated. (2) Hypertension: Code(s): I10 - Essential (primary) hypertension Status: Acute Assessment and Plan: -continue with patient's Lasix, metoprolol and entresto echo completed (3) CHF (congestive heart failure): Qualifiers: Heart failure chronicity: acute Heart failure type: combined systolic and diastolic Qualified Code(s): I50.41 - Acute combined systolic (congestive) and diastolic (congestive) heart failure Code(s): I50.9 - Heart failure, unspecified Status: Acute Assessment and Plan: -continue with Jardiance -iv lasix and entresto (4) Atrial fibrillation: Qualifiers: Atrial fibrillation type: longstanding persistent Qualified Code(s): I48.11 - Longstanding persistent atrial fibrillation Code(s): I48.91 - Unspecified atrial fibrillation Status: Acute Assessment and Plan: -the patient is in AFib but his rate is controlled. -continue with his metoprolol (5) Hyperlipidemia: Code(s): E78.5 - Hyperlipidemia, unspecified Status: Acute Assessment and Plan: -pt is off atorvastatin? ? Subjective Date/time seen: 05/04/22 16:03 51 year old male patient who has a history of congestive heart failure.? Who the patient stated he has been taking his medication without difficulty and he has been watching his diet.? The patient stated that he did have an increase of edema to his lower extremities.? Patient stated that he was lying in bed early this morning and he developed left-sided chest pain that did not radiate it down his arm surface neck. Pt had echo awaiting SEE tomorrow Seen by cardiology group npo from [place] Review of Systems Review of Systems: Mild headache likely secondary to NTG Exam Const: General: cooperative, healthy appearing, comfortable, no acute distress, well developed, alert, awake, Physically active, average body habitus, well nourished and obese Nutritional Appearance: average body habitus, well nourished and obese Orientation/consciousness: oriented to person, oriented to place, oriented to time and patient oriented x3 Limitations: no limitations Resp: Effort & Inspection: normal respiratory effort Auscultation: clear to auscultation bilaterally Cardio: Palpation: normal PMI Rate: regular rate Rhythm: abnormal rhythm irregularly irregular Heart sounds: S1 normal heart sound present and S2 normal heart sound present Peripheral pulses: Peripheral pulses 2+ throughout Neuro: General: oriented to person, oriented to place, oriented to time and patient oriented x3 Cranial nerves: Yes Equal, round and reactive pupils present and Yes Normal hearing present Cognition (Neuro): normal cognition Speech: normal speech Gait exam (Neuro): Normal gait present Motor exam (neuro): 5/5 motor strength present throughout Sensory Exam: normal sensation Extrem: General: normal to inspection Right upper extremity: normal to inspection and shoulder/upper arm Left upper extremity: normal to inspection and shoulder/upper arm Right lower extremity: edema Details: 2+ Objective Data Vital Signs Vital Signs: Vital Signs - 24 hr 05/03/22 16:24 05/03/22 16:24 05/03/22 16:25 Temperature Pulse Rate 81 82 75 Respiratory Rate 13 13 24 H Blood Pressure 139/89 138/89 Pulse Oximetry 99 99 Oxygen Delivery 05/03/22 16:30 05/03/22 16:45 05/03/22 18:27 Temperature Pulse Rate 71 93 88 Respiratory Rate 18 17 Blood Pressure 152/89 H Pulse Oximetry 98 Oxygen Delivery 05/03/22 18:27 05/03/22 18:30 05/03/22 20:00 Temperature 36.3 C L 36.4 C Pulse Rate 77 82 Respiratory Rate 20 18 Blood Pressure 152/101 H 156/110 H Pulse Oximetry 99 97 Oxygen Delivery Room Air 05/03/22 21:00
[2022-05-05] VITALS (12 sets, daily range): BP systolic 117–148; BP diastolic 73–107; PULSE 58–106; RESP 18–20; TEMP 36.2–36.7; O2SAT 98–99
[2022-05-05] MEDS: MORPHINE SULFATE (*CRX) 2 MG/ML INJ IV PUSH ×3 (03:35→13:03)
--- NOTE | 2022-05-05 08:00 | EST_ITS ---
Patient Info Name: Tobi Valles Age: 51 years : 1970 Gender: Male Ht: 78 in Wt: 310 lbs BSA: 2.82 m2 HR: 83 bpm BP: 120 / 84 mmHg Heart Rhythm: Sinus Rhythm Exam Date: 05/05/2022 12:20 PM Exam Location: [facility] Stress Patient Status: Inpatient Admit Date: 05/03/2022 Staff Ordering Physician: Echo Alfaro MD Attending Provider: Eulalia Barnhart MD Exercise Technologist: Dariela Muro CT Exercise Physician: Adolph Ordoñez MD Exam Type: CA stress test treadmill w [place] Study Info Indications R07.9 - Chest pain, unspecified A nuclear stress test was performed. Summary 1. Please correlate with nuclear medicine images, reported separately. 2. No abnormal ST-T wave changes with exercise. 3. Below average exercise capacity for age. Protocol: [facility] Stress ECG Details Stage: REST Duration (min): 6 min : 46 sec Speed (mph): 0.0 Grade (%): 0 HR (bpm): 92 SBP (mmHg): 120 DBP (mmHg): 84 METS: --- Stage: REST Duration (min): 16 min : 37 sec Speed (mph): 0.0 Grade (%): 0 HR (bpm): 91 SBP (mmHg): 120 DBP (mmHg): 84 METS: --- Stage: STAGE 1 Duration (min): 1 min : 0 sec Speed (mph): 1.7 Grade (%): 10 HR (bpm): 108 SBP (mmHg): 120 DBP (mmHg): 84 METS: --- Stage: STAGE 1 Duration (min): 2 min : 0 sec Speed (mph): 1.7 Grade (%): 10 HR (bpm): 106 SBP (mmHg): 120 DBP (mmHg): 84 METS: --- Stage: STAGE 1 Duration (min): 3 min : 0 sec Speed (mph): 1.7 Grade (%): 10 HR (bpm): 99 SBP (mmHg): 121 DBP (mmHg): 74 METS: --- Stage: STAGE 2 Duration (min): 1 min : 0 sec Speed (mph): 2.5 Grade (%): 12 HR (bpm): 110 SBP (mmHg): 121 DBP (mmHg): 74 METS: --- Stage: STAGE 2 Duration (min): 2 min : 0 sec Speed (mph): 2.5 Grade (%): 12 HR (bpm): 114 SBP (mmHg): 130 DBP (mmHg): 84 METS: --- Stage: STAGE 2 Duration (min): 3 min : 0 sec Speed (mph): 2.5 Grade (%): 12 HR (bpm): 128 SBP (mmHg): 130 DBP (mmHg): 84 METS: --- Stage: STAGE 3 Duration (min): 1 min : 0 sec Speed (mph): 3.4 Grade (%): 14 HR (bpm): 137 SBP (mmHg): 175 DBP (mmHg): 100 METS: --- Stage: STAGE 3 Duration (min): 1 min : 37 sec Speed (mph): 3.4 Grade (%): 14 HR (bpm): 137 SBP (mmHg): 175 DBP (mmHg): 100 METS: --- Stage: RECOVERY Duration (min): 0 min : 22 sec Speed (mph): 0.0 Grade (%): 0 HR (bpm): 131 SBP (mmHg): 175 DBP (mmHg): 100 METS: --- Stage: RECOVERY Duration (min): 1 min : 22 sec Speed (mph): 0.0 Grade (%): 0 HR (bpm): 126 SBP (mmHg): 175 DBP (mmHg): 100 METS: --- Stage: RECOVERY Duration (min): 2 min : 22 sec Speed (mph): 0.0 Grade (%): 0 HR (bpm): 101 SBP (mmHg): 175 DBP (mmHg): 100
[2022-05-05] MEDS: FAMOTIDINE 20 MG/2 ML VIAL IV PUSH (08:14)
[2022-05-05] MEDS: EMPAGLIFLOZIN 10 MG TABLET PO (08:14)
[2022-05-05] MEDS: APIXABAN 5 MG TABLET PO (08:14)
[2022-05-05] MEDS: ATORVASTATIN 40 MG TABLET PO (08:14)
[2022-05-05] MEDS: SACUBITRIL/VALSARTAN 49-51 MG TABLET 1 TABLET PO (08:15)
[2022-05-05] MEDS: FLUTICASONE PROPIONATE 0.05% NA SPR 16 GM BTL (*BKC) 2 SPRAY NASAL (08:15)
[2022-05-05] MEDS: SPIRONOLACTONE 25 MG TABLET PO (08:15)
[2022-05-05] MEDS: METOPROLOL SUCCINATE EXT REL 100 MG TABCR PO (14:30)
[2022-05-05] MEDS: amLODIPine BESYLATE 5 MG TABLET PO (14:30)
--- NOTE | 2022-05-05 15:40 | PM.PNCARD ---
Progress Note: A&P Assessment and Plan (1) Chest pain: Code(s): R07.9 - Chest pain, unspecified Status: Acute (2) Hypertension: Code(s): I10 - Essential (primary) hypertension Status: Acute (3) Cardiomyopathy: Qualifiers: Cardiomyopathy type: unspecified Qualified Code(s): I42.9 - Cardiomyopathy, unspecified Code(s): I42.9 - Cardiomyopathy, unspecified Status: Acute (4) Atrial fibrillation: Qualifiers: Atrial fibrillation type: longstanding persistent Qualified Code(s): I48.11 - Longstanding persistent atrial fibrillation Code(s): I48.91 - Unspecified atrial fibrillation Status: Acute Plan Stress MPI showed normal myocardial perfusion at rest and during stress. Although LVEF is reported 31% on nuclear, TTE done yesterday with contrast shows LVEF 50-55%. Patient can be discharge home with follow-up with his primary [facility]. Continue Amlodipine, Eliquis, Jardiance, Toprol, Entresto, and Aldactone upon discharge. Subjective Date/time seen: 05/05/22 15:40 Interval history: Reason for visit: Chest pain No acute events overnight. No chest pain. Stress test today. Review of Systems Review of Systems: 8-point ROS obtained. Negative, unless stated in HPI. Exam Const: General: comfortable and no acute distress HENMT: Mouth: Yes moist mucous membranes Eyes: General: appearance normal, both eyes and all related structures Sclera: sclerae normal Neck: Neck: supple Resp: Effort & Inspection: normal respiratory effort Auscultation: clear to auscultation bilaterally Cardio: Rhythm: abnormal rhythm irregularly irregular Heart sounds: no murmurs GI: GI Palp: Yes Soft to palpation and No Tenderness to palpation present (GI) Skin: General skin exam: normal color Neuro: Speech: normal speech Motor exam (neuro): 5/5 motor strength present throughout Extrem: General: normal to inspection and no edema Psych: Mental Status: mental status grossly normal Affect: normal affect Objective Data Vital Signs Vital Signs: Vital Signs - 24 hr 05/04/22 16:00 05/04/22 16:22 05/04/22 16:00 Temperature 36.4 C Pulse Rate 83 82 Respiratory Rate 20 Blood Pressure 110/70 Pulse Oximetry 98 Oxygen Delivery Room Air 05/04/22 17:48 05/04/22 20:00 05/04/22 20:42 Temperature 36.6 C Pulse Rate 80 84 97 Respiratory Rate 20 Blood Pressure 143/99 H Pulse Oximetry 99 Oxygen Delivery 05/04/22 20:00 05/04/22 22:00 05/04/22 23:32 Temperature 36.7 C Pulse Rate 90 90 73 Respiratory Rate 20 Blood Pressure 134/101 H Pulse Oximetry 99 Oxygen Delivery 05/05/22 00:00 05/05/22 02:00 05/05/22 03:43 Temperature 36.7 C Pulse Rate 85 76 83 Respiratory Rate 20 Blood Pressure 117/73 Pulse Oximetry 98 Oxygen Delivery 05/05/22 04:00 05/05/22 06:00 05/05/22 08:00 Temperature 36.2 C L Pulse Rate 65 79 77 Respiratory Rate 18 Blood Pressure 148/107 H Pulse Oximetry 99 Oxygen Delivery 05/05/22 08:00 05/05/22 08:00 05/05/22 10:00 Temperature Pulse Rate 94 82 Respiratory Rate Blood Pressure Pulse Oximetry Oxygen Delivery Room Air 05/05/22 11:49 05/05/22 12:00 05/05/22 13:43 Temperature 36.3 C L Pulse Rate 87 81 Respiratory Rate 18 Blood Pressure 128/91 H Pulse Oximetry 98 Oxygen Delivery Room Air 05/05/22 14:30 05/05/22 14:00 Temperature Pulse Rate 90 106 H Respiratory Rate Blood Pressure Pulse Oximetry Oxygen Delivery Intake/Output Intake/Output: Intake & Output 05/02/22 05/03/22 05/04/22 05/05/22 23:59 23:59 23:59 23:59 Intake Total 1920 750 Output Total 3450 1100 Balance -1530 -350 Meds/Results Medications: Active Medications Generic Name Dose Route Start Last Admin Trade Name Freq PRN Reason Stop Dose Admin Hydrocodone Bitart/Acetaminophen 1 tab 05/03/22 21:12 05/03/22 21:41 Hydroco
[2022-05-05] MEDS: HYDROcodone/acetaminophen (*CRX) 5-325 MG TABLET 1 TAB PO (16:07)
--- NOTE | 2022-05-05 16:14 | PM.DS ---
DS: Admitting Diagnosis Discharge Date 05/05/22 Admitting Diagnosis chest pain DS: Discharge Diagnosis Discharge Diagnosis (1) Chest pain: Code(s): R07.9 - Chest pain, unspecified Status: Acute Assessment and Plan: . -cardiology consultation with greatly be appreciated. (2) Hypertension: Code(s): I10 - Essential (primary) hypertension Status: Acute Assessment and Plan: -continue with patient's Lasix, metoprolol and entresto echo completed (3) CHF (congestive heart failure): Qualifiers: Heart failure chronicity: acute Heart failure type: combined systolic and diastolic Qualified Code(s): I50.41 - Acute combined systolic (congestive) and diastolic (congestive) heart failure Code(s): I50.9 - Heart failure, unspecified Status: Acute Assessment and Plan: -continue with Jardiance -iv lasix and entresto (4) Atrial fibrillation: Qualifiers: Atrial fibrillation type: longstanding persistent Qualified Code(s): I48.11 - Longstanding persistent atrial fibrillation Code(s): I48.91 - Unspecified atrial fibrillation Status: Acute Assessment and Plan: -the patient is in AFib but his rate is controlled. -continue with his metoprolol (5) Hyperlipidemia: Code(s): E78.5 - Hyperlipidemia, unspecified Status: Acute Assessment and Plan: -pt is off atorvastatin? ? DS: Summary Hospital Course Hospital Course: admitted for cp, cardiac [place] unrevealing hx of chf and did receive diuretic therapy during this hospitalization no sob no cp can be dc home to fu with cardiology Time Spent with Patient Time attestation: Total time spent providing and/or coordinating discharge services: Exam Const: General: cooperative, healthy appearing, comfortable, no acute distress, well developed, alert, awake, Physically active, average body habitus, well nourished and obese Nutritional Appearance: average body habitus, well nourished and obese Orientation/consciousness: oriented to person, oriented to place, oriented to time and patient oriented x3 Limitations: no limitations HENMT: Head: normal to inspection, No palpable skull fracture present, normocephalic and atraumatic Ears: hearing grossly normal bilaterally and external ears normal Face/Nose/Sinus: Normal external nose present and Normal nares present Eyes: General: appearance normal, both eyes and all related structures Alignment and Position: alignment normal Periorbital: periorbital findings normal Eyelids: eyelids normal Sclera: sclerae normal Pupils: Equal, round and reactive pupils present EOM: EOMs intact bilaterally Neck: Neck: normal visual inspection, full ROM, no lymphadenopathy, trachea midline and supple Chest: Chest palpation & inspection: normal inspection of the chest Resp: Effort & Inspection: normal respiratory effort Auscultation: clear to auscultation bilaterally Cardio: Palpation: normal PMI Rate: regular rate Rhythm: abnormal rhythm irregularly irregular Heart sounds: S1 normal heart sound present and S2 normal heart sound present Peripheral pulses: Peripheral pulses 2+ throughout GI: Inspection: normal to inspection Auscultation: normal bowel sounds Rectal Exam: deferred Back/Spine/Pelvis: Cervical Spine: cervical ROM normal Skin: General skin exam: normal color Lesions: no lesions Rashes: no rashes Trauma: no lacerations or abrasions Wounds: no wounds Hair: normal Nails: normal Neuro: General: oriented to person, oriented to place, oriented to time and patient oriented x3 Cranial nerves: Yes Equal, round and reactive pupils present and Yes Normal hearing present Cognition (Neuro): normal cognition Speech: normal speech Gait exam (Neuro): Normal gait present Motor exam (neuro): 5/5 motor strength present throughout Sensory Exam: normal sensation Extrem: General: normal to inspection Right upper extremity: normal to inspec
== END 2022-05-05 17:25 | disposition home or self-care (01) ==
LOC: ANHED 11:01 → ANHIMU 18:54
PROVIDERS: Nurse Practitioner; Admitting Provider Family Medicine; Emergency Provider Emergency Medicine; PCP Internal Medicine; Visit Provider Chiropractor
DX: R07.9 Chest pain, unspecified (principal); I42.9 Cardiomyopathy, unspecified; R06.02 Shortness of breath; I48.11 Longstanding persistent atrial fibrillation; E78.5 Hyperlipidemia, unspecified; I11.0 Hypertensive heart disease with heart failure; I50.41 Acute combined systolic (congestive) and diastolic (congestive) heart failure; E66.9 Obesity, unspecified; Z68.35 Body mass index [BMI] 35.0-35.9, adult; Z20.822 Contact with and (suspected) exposure to COVID-19; R60.0 Localized edema; F17.290 Nicotine dependence, other tobacco product, uncomplicated; F10.90 Alcohol use, unspecified, uncomplicated; R94.31 Abnormal electrocardiogram [ECG] [EKG]; Z79.01 Long term (current) use of anticoagulants; Z79.51 Long term (current) use of inhaled steroids; Z79.899 Other long term (current) drug therapy; Z83.3 Family history of diabetes mellitus; Z82.49 Family history of ischemic heart disease and other diseases of the circulatory system
CPT/HCPCS: 36415; 71046; 71275; 78452; 80053; 83690; 83735; 83880; 84443; 84484; 85025; 85610; 85730; 87636; 93005; 93017; 96374; 96375; 96376; 99285; A9270; A9502; C8929; G0378; G0379; J0360; J1940; J2270; Q9957; Q9967

== ENCOUNTER 2023-03-08 07:01 | Emergency (ER) | payer OTHER, SELFPAY ==
[2023-03-08] VITALS (19 sets, daily range): BP systolic 159–204; BP diastolic 102–141; PULSE 60–83; RESP 10–22; TEMP 36.3; O2SAT 96–100
--- NOTE | ~2023-03-08 | CT_ITS ---
EXAMINATION: CT brain wo con DATE: 03/08/2023 09:44 INDICATION: Headache. TECHNIQUE: Computed tomography (CT) of the head was performed without intravenous contrast. The mA wa s adjusted according to patient size. Iterative reconstruction technique was employed. The dose-lengt h product was 681.00 mGy-cm. COMPARISON: None FINDINGS: There is no intracranial hemorrhage, acute infarction, or abnormal intracranial mass lesion . There are scattered areas of low attenuation in the cerebral white matter. The ventricles are rona l in size. There is mucosal thickening in the paranasal sinuses. The mastoid air cells are normal. IMPRESSION: 1. Mild nonspecific cerebral white matter disease, which likely represents chronic small vessel ische shelly disease. Reviewed, dictated and finalized at location A. [facility] IMPRESSION: 1. 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
--- NOTE | ~2023-03-08 | CT_ITS ---
Clinical Indication: Shortness of breath CT Scan of the Chest with Contrast: Technique: Contiguous sections were acquired throughout the chest after intravenous administration of 100 cc of Omnipaque 350. Dose reduction technique was used on this scan by utilizing automated expos ure control and iterative reconstruction technique. The dose-length product (DLP) was 1150.40 mGy-cm. COMPARISON: 05/03/2022 Findings: There is no evidence of any significant mediastinal, hilar or axillary lymphadenopathy. There is no f illing defect in the pulmonary arterial tree to suggest pulmonary embolus. There is no evidence of ao rtic dissection or aneurysm. There is no evidence of pleural or pericardial effusion. The lungs are clear. No pulmonary nodules or infiltrates are noted. Images through the upper abdomen reveal no abnormalities. Impression: No evidence of pulmonary embolus, aortic dissection, or aortic aneurysm. Clear lungs. Reviewed, dictated and finalized at [facility]. 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 Clear lungs.
--- NOTE | ~2023-03-08 | XR_ITS ---
XR chest 2V DATE: 03/08/2023 07:55 INDICATION: Shortness of breath. Hypertension. Headache. TECHNIQUE: PA and lateral views COMPARISON: 05/03/2022 CTA chest 05/03/2022 2 view chest FINDINGS: There is mild elevation of the right leaf of the diaphragm. Normal heart size. There is aortic arch calcification. No hilar or mediastinal enlargement. No pulmon ramin infiltrate or consolidation, pleural effusion or pulmonary vascular congestion or pneumothorax is detected. IMPRESSION: No active cardiopulmonary disease Reviewed, dictated and finalized at location L. HER TRIMMER
--- NOTE | 2023-03-08 07:28 | ECG_ITS ---
Measurements Intervals [place] Rate: 73 P: LA: 0 QRS: -5 QRSD: 102 T: 42 QT: 415 QTc: 460 Interpretive Statements ATRIAL FIBRILLATION DELAYED PRECORDIAL R/S TRANSITION ABNORMAL ECG COMPARED TO ECG 05/03/2022 23:05:36 NO SIGNIFICANT CHANGES Electronically Signed On 03-08-2023 9:42:15 MEDICAL RECORDS DIRECTOR by Flaco Galdamez D.O.
[2023-03-08 07:50] LABS: Basophils Percent Auto 0.4 % (0.2-1.2); Eosinophils Absolute Auto 0.2 K/mm3 (0-0.3); Eosinophils Percent Auto 1.8 % (0-4.4); Hematocrit 43.8 % (42.0-52.0); Hemoglobin 14.8 g/dL (14.0-18.0); Immature Granulocyte Absolute 0.03 K/mm3 (0.00-0.031); Immature Granulocyte Percent A 0.3 % (0-0.5); Lymphocytes Absolute Auto 1.07 K/mm3 (0.9-3.2); Lymphocytes Percent Auto 11.7 % (18.3-44.2); Mean Corpuscular HGB Conc 33.8 g/dl (32-36); Mean Corpuscular Hemoglobin 31.4 pg (26-34); Mean Corpuscular Volume 92.8 fl (80-100); Mean Platelet Volume 10.9 fl (7.4-10.4); Monocytes Absolute Auto 0.5 K/mm3 (0.1-0.6); Monocytes Percent Auto 4.9 % (2.6-8.5); Neutrophils Absolute Auto 7.4 K/mm3 (1.3-6.7); Neutrophils Percent Auto 80.9 % (45.5-73.1); Platelet Count Result 209 k/mm3 (150-375); Red Blood Count 4.72 M/mm3 (4.6-6.20); Red Cell Distribution Width 12.1 % (11.5-14.5); White Blood Count 9.1 K/mm3 (4.5-10.0)
[2023-03-08 08:05] LABS: Alanine Aminotransferase 21 U/L (6-50); Albumin Level 4.5 g/dL (3.5-5.1); Alkaline Phosphatase 79 U/L (38-126); Anion Gap 13 mmol/L (8-16); Aspartate Amino Transferase 24 U/L (17-59); Bilirubin,Total 0.9 mg/dL (0.2-1.3); Blood Urea Nitrogen 15 mg/dL (9-20); Calcium 9.3 mg/dL (8.4-10.2); Carbon Dioxide 23 mmol/L (22-30); Chloride 104 mmol/L (98-107); Estimated CRCL calculation 114 ml/min; Estimated Glomerular Filt Rate > 60; Glucose 108 mg/dL (65-110); Lipase 33 U/L (23-300); Potassium 3.9 mmol/L (3.4-5.0); Sodium 140 mmol/L (137-145)
[2023-03-08 08:09] LABS: INR 0.9; Prothrombin Time 12.7 Seconds (11.1-14.7)
[2023-03-08 08:11] LABS: Partial Thromboplastin Time 28.9 SECONDS (22.3-36.8)
[2023-03-08 08:17] LABS: Troponin I < 0.012 ng/mL (0.000-0.034)
--- NOTE | 2023-03-08 09:25 | ED.GENADULT ---
HPI - General Adult General Chief complaint: Shortness of Breath/Dyspnea Stated complaint: sob, high blood pressure Time Seen by Provider: 03/08/23 08:51 History of Present Illness HPI narrative: Tobi Valles is a 52 y/o male who presents with reports of having Headache/ shortness of breath that has been ongoing since yesterday. He states that when he got home from work yesterday he felt SOB and when he got up this morning he continued to have a headache and feeling like he couldn't take a deep breath. He denies cough/fever/chills/ Denies chest pain/ He reports that each time he felt SOB he checked his b/p at home and it was elevated. He states that he did not take his medications this morning and came right in. Related Data Home Medications Medication Instructions Recorded Confirmed fluticasone propionate 50 2 spray intranasal DAILY 06/04/21 09/16/22 mcg/actuation nasal spray,suspension (Allergy Relief (fluticasone)) Vitamin D3 1.25 mg PO WEEKLY 11/02/21 09/16/22 amlodipine 5 mg tablet 5 mg PO DAILY 11/02/21 09/16/22 atorvastatin 40 mg tablet 40 mg PO DAILY 11/02/21 09/16/22 apixaban 5 mg tablet (Eliquis) 5 mg PO BID 05/03/22 09/16/22 metoprolol succinate 100 mg 100 mg PO BID 05/03/22 09/16/22 tablet,extended release 24 hr (Toprol XL) Allergies Allergy/AdvReac Type Severity Reaction Status Date / Time No Known Allergies Allergy Unknown Verified 03/08/23 08:07 Review of Systems Review of Systems: CONSTITUTIONAL: Denies fever, chills, or sweats. EYES: Reports feeling like his vision is not as clear, denies redness, or discharge. ENT: Denies rhinorrhea, congestion, sore throat, or otalgia. CARDIOVASCULAR: Denies chest pain, palpitations, or edema. He reports hx of afib which he admits he takes Eliquis for this. RESPIRATORY: Reports feeling SOB that started yesterday. GASTROINTESTINAL: Denies abdominal pain, nausea, vomiting, or diarrhea. GENITOURINARY: Denies dysuria or hematuria. SKIN: Denies rash or itching. MUSCULOSKELETAL: Denies back pain, joint pain, or myalgia. NEUROLOGIC: Denies headache, numbness, dizziness, or weakness. PSYCHIATRIC: Denies anxiety or depression. [facility] Past Medical History Medical History Atrial fibrillation History of cardioversion Hyperlipidemia Hypertension Impingement of right knee joint Joint effusion Right knee Obesity Painful total knee replacement, right Surgical History Surgical History H/O shoulder surgery History of synovectomy (~06/10/21) right arthroscopic synovectomy History of total knee replacement (~09/2016) right knee Family History Family History Father Hypertension Mother Hypertension Sibling Hypertension Other Diabetes mellitus Social History Social History Social History: Patient is currently going through a divorce and has two boys 02/03. His mother is his surrogate Ml. He lives by his self and wishes to be a full code at this time. He works for [employer]. 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
[2023-03-08 09:39] LABS: Magnesium 1.9 mg/dL (1.6-2.3)
[2023-03-08 09:46] LABS: NT Pro B Type Natriuretic Pept 2550 pg/mL (19.9-100)
[2023-03-08] MEDS: ACETAMINOPHEN 500 MG TABLET 1000 MG PO (09:53)
[2023-03-08] MEDS: METOPROLOL SUCCINATE EXT REL 100 MG TABCR PO (09:54)
[2023-03-08] MEDS: amLODIPine BESYLATE 5 MG TABLET PO (09:54)
[2023-03-08 10:38] LABS: Influenza A QL RT-PCR Negative (Negative); Influenza B QL RT-PCR Negative (Negative); RSV RNA, RT-PCR Negative (Negative); SARS-CoV-2 RNA PCR Negative (Negative)
[2023-03-08 10:53] LABS: Troponin I < 0.012 ng/mL (0.000-0.034)
[2023-03-08] MEDS: FUROSEMIDE INJ 40 MG/4 ML VIAL 20 MG IV PUSH (11:30)
[2023-03-08] MEDS: diphenhydrAMINE HCl INJ 50 MG/ML VIAL 25 MG IV PUSH (11:40)
[2023-03-08] MEDS: PROCHLORPERAZINE EDISYLATE 10 MG/2 ML VIAL IV PUSH (11:45)
[2023-03-08] MEDS: SACUBITRIL/VALSARTAN 49-51 MG TABLET 1 TABLET PO (12:34)
== END 2023-03-08 13:24 | disposition home or self-care (01) ==
PROVIDERS: Student in an Organized Health Care Education/Training Program; Emergency Provider Nurse Practitioner Family; PCP Internal Medicine
DX: I10 Essential (primary) hypertension (principal); R51.9 Headache, unspecified; I48.91 Unspecified atrial fibrillation; E78.5 Hyperlipidemia, unspecified; Z87.891 Personal history of nicotine dependence; Z20.822 Contact with and (suspected) exposure to COVID-19
CPT/HCPCS: 36415; 70450; 71046; 71275; 80053; 83690; 83735; 83880; 84484; 85025; 85610; 85730; 87637; 93005; 96374; 96375; 99284; A9270; J0780; J1200; J1940; Q9967

== ENCOUNTER 2023-03-21 12:37 | Observation (INO) | payer OTHER, SELFPAY ==
[2023-03-21] VITALS (7 sets, daily range): BP systolic 140–187; BP diastolic 97–117; PULSE 66–80; RESP 15–20; TEMP 36.6–36.8; O2SAT 97–100; BMI 37.0
--- NOTE | ~2023-03-21 | XR_ITS ---
EXAMINATION: XR chest 2V 03/21/2023 13:02 INDICATION: Weakness, dizziness PROCEDURE: 2 view chest COMPARISON: 03/08/2023 FINDINGS: The lungs are clear. Prominent left nipple shadow. The cardiomediastinal silhouette is with in normal limits. There are no pleural effusions. There is no pneumothorax suspected. IMPRESSION: 1: NO ACUTE CARDIOPULMONARY DISEASE. Reviewed, dictated and finalized at location B. DER SET UP OPERATOR UNIVERSAL
--- NOTE | ~2023-03-21 | MR_ITS ---
MRI of the thoracic spine Clinical History: Left-sided weakness Technique: Axial T2-weighted and gradient images, and sagittal T1-weighted, T2-weighted, and STIR nae ges were acquired. Following intravenous administration of 20 cc MultiHance gadolinium, T1-weighted f at-sat imaging was performed in the axial and sagittal planes. Findings: There is no fracture or subluxation of the thoracic spine. Vertebral bodies maintain normal height and alignment. No bone marrow signal abnormality seen. No disc bulge or herniation seen at any thoracic level. There is no spinal canal stenosis or cord com pression/spine. No epidural mass or collection seen. No abnormal signal seen in the spinal cord. Paravertebral soft tissues are unremarkable. No abnormal postcontrast enhancement identified. Impression: Unremarkable exam. Reviewed, dictated and finalized at [facility]. E TESTED NURSING ASSISTANT Impression: Unremarkable exam.
--- NOTE | ~2023-03-21 | CT_ITS ---
EXAMINATION: CTA brain carotid DATE: 03/21/2023 15:10 INDICATION: Slurred speech. Dizziness. TECHNIQUE: Computed tomographic angiography (CTA) of the head was performed without and with 100 mL O mnipaque-350 intravenous contrast. CTA of the neck was performed with intravenous contrast. Automated exposure control and iterative reconstruction technique were employed. The dose-length product was 2 041.05 mGy-cm. Maximum intensity projection and volume rendered 3D-reconstructions were created by [facility] technologist on a separate workstation. COMPARISON: Head CT 03/08/2023 FINDINGS: HEAD CTA: There are scattered areas of low attenuation in the cerebral white matter. There is no intr acranial hemorrhage, acute infarction, or abnormal intracranial mass lesion. The ventricles are rona l in size. There is mucosal thickening in the paranasal sinuses. The orbits are normal. The mastoid a ir cells are normal. Right vertebral artery is dominant. There is no significant stenosis of basilar artery or the posterior cerebral arteries. The posterior communicating arteries are normal. There is no significant stenosis of the intracranial internal carotid arteries or anterior or middle cerebral arteries. Anterior communicating artery is normal. There is no aneurysm. NECK CTA: There are nodules in the thyroid measuring up to 8 mm, likely not clinically significant. T here are no pathologically enlarged lymph nodes. There is no significant stenosis of the vertebral ar teries. There is mild plaque in the proximal internal carotid arteries. There is 0% stenosis of the p roximal right internal carotid artery relative to normal distal artery lumen diameter (NASCET criteri a). There is 0% stenosis of the proximal left internal carotid artery relative to normal distal arter y lumen diameter. There is mild cervical spondylosis. IMPRESSION: 1. Mild nonspecific cerebral white matter disease, which likely represents chronic small vessel ische shelly disease. 2. No aneurysm or significant intracranial arterial stenosis. 3. 0% stenosis of the proximal internal carotid arteries relative to normal distal artery lumen diame ters (NASCET criteria). Reviewed, dictated and finalized at location A. E OPERATOR CAB IMPRESSION: 1. Mild nonspecific cerebral white matter disease, which likely represents engagement quality consultant arnav small vessel ischemic disease. 2. No aneurysm or significant intracranial arterial stenosis. 3. 0% stenosis of the proximal internal carotid arteries relative to normal dis aleah artery lumen diameters (NASCET criteria).
--- NOTE | ~2023-03-21 | MR_ITS ---
EXAMINATION: MR brain/brain stem wo/w con DATE: 03/22/2023 12:29 INDICATION: Cerebrovascular accident. Left hemiparesis. TECHNIQUE: Magnetic resonance imaging (MRI) of the brain and brainstem was performed without and with 20 mL MultiHance intravenous contrast. COMPARISON: Head CT 03/21/2023 FINDINGS: There are scattered areas of nonspecific increased T2-weighted signal intensity in the cere bral white matter, which is within normal limits for the patient's age. There is no intracranial hemo rrhage, acute infarction, or abnormal intracranial mass lesion. The ventricles are normal in size. Th ere is mucosal thickening in the paranasal sinuses. The orbits are normal. The mastoid air cells are normal. IMPRESSION: 1. Normal aging brain. Reviewed, dictated and finalized at location A. NDING [facility]BULATORY CARE IMPRESSION: 1. Normal aging brain.
--- NOTE | ~2023-03-21 | MR_ITS ---
MRI of the cervical spine Clinical History: Left-sided weakness Technique: Axial T2-weighted and gradient images, and sagittal T1-weighted, T2-weighted, and STIR nae ges were acquired. Following intravenous administration of 20 cc MultiHance gadolinium, T1-weighted f at-sat imaging was performed in the axial and sagittal planes. Findings: There is no fracture or subluxation of the cervical spine. Vertebral bodies maintain normal height and alignment. No bone marrow signal abnormality seen. At C2-C3, there is no disc bulge or herniation. No spinal canal stenosis, cord compression, or neural foraminal narrowing. There is mild right facet arthropathy. At C3-C4, there is no disc bulge or herniation. No spinal canal stenosis or cord compression. There i s mild bilateral facet arthropathy, left worse than right, with mild left neural foraminal narrowing. Right neural foramen preserved. At C4-C5, there is no disc bulge or herniation. No spinal canal stenosis or cord compression. There i s mild bilateral facet hypertrophy without definite neural foraminal narrowing. At C5-C6, there is no disc bulge or herniation. No spinal canal stenosis, cord compression, or neural foraminal narrowing. At C6-C7, there is no disc bulge or herniation. No spinal canal stenosis, cord compression, or neural foraminal narrowing. No abnormal signal seen in the spinal cord. No epidural mass or collection. Paravertebral soft tissue s are unremarkable. No abnormal postcontrast enhancement. Impression: Mild degenerative spondylosis, as above. Reviewed, dictated and finalized at [facility]. DING INSPECTION ENGINEER Impression: Mild degenerative spondylosis, as above.
--- NOTE | 2023-03-21 12:40 | ECG_ITS ---
Measurements Intervals [place] Rate: 82 P: [place]: 0 QRS: -12 QRSD: 96 T: 51 QT: 391 QTc: 457 Interpretive Statements ATRIAL FIBRILLATION DELAYED PRECORDIAL R/S TRANSITION BORDERLINE ST-T WAVE ABNORMALITY- HIGH LATERAL LEADS BASELINE ARTIFACT- I, II, III, AVR, AVL, AVF, V1-V6 ABNORMAL ECG COMPARED TO ECG 03/08/2023 07:31:24 NO SIGNIFICANT CHANGES Electronically Signed On 03-21-2023 13:06:08 BLOOD BANK MANAGER by Flaco Galdamez D.O.
[2023-03-21 12:55] LABS: Glucose Point of Care 102 mg/dl (65-105)
[2023-03-21 13:12] LABS: Basophils Absolute Auto 0.1 K/mm3 (0.0-0.1); Basophils Percent Auto 0.8 % (0.2-1.2); Eosinophils Absolute Auto 0.1 K/mm3 (0-0.3); Eosinophils Percent Auto 1.3 % (0-4.4); Hematocrit 47.8 % (42.0-52.0); Hemoglobin 16.3 g/dL (14.0-18.0); Immature Granulocyte Absolute 0.01 K/mm3 (0.00-0.031); Immature Granulocyte Percent A 0.1 % (0-0.5); Lymphocytes Absolute Auto 2.02 K/mm3 (0.9-3.2); Lymphocytes Percent Auto 27.1 % (18.3-44.2); Mean Corpuscular HGB Conc 34.1 g/dl (32-36); Mean Corpuscular Hemoglobin 31.8 pg (26-34); Mean Corpuscular Volume 93.2 fl (80-100); Mean Platelet Volume 11.1 fl (7.4-10.4); Monocytes Absolute Auto 0.5 K/mm3 (0.1-0.6); Monocytes Percent Auto 7.1 % (2.6-8.5); Neutrophils Absolute Auto 4.7 K/mm3 (1.3-6.7); Neutrophils Percent Auto 63.6 % (45.5-73.1); Platelet Count Result 230 k/mm3 (150-375); Red Blood Count 5.13 M/mm3 (4.6-6.20); Red Cell Distribution Width 11.7 % (11.5-14.5); White Blood Count 7.5 K/mm3 (4.5-10.0)
[2023-03-21 13:22] LABS: Alanine Aminotransferase 25 U/L (6-50); Albumin Level 4.7 g/dL (3.5-5.1); Alkaline Phosphatase 74 U/L (38-126); Anion Gap 11 mmol/L (8-16); Aspartate Amino Transferase 28 U/L (17-59); Bilirubin,Total 0.9 mg/dL (0.2-1.3); Blood Urea Nitrogen 20 mg/dL (9-20); Calcium 9.8 mg/dL (8.4-10.2); Carbon Dioxide 26 mmol/L (22-30); Chloride 102 mmol/L (98-107); Estimated CRCL calculation 96 ml/min; Estimated Glomerular Filt Rate 58; Glucose 114 mg/dL (65-110); Potassium 4.2 mmol/L (3.4-5.0); Sodium 139 mmol/L (137-145)
--- NOTE | 2023-03-21 14:49 | ED.GENADULT ---
HPI - General Adult General Chief complaint: Neuro Symptoms/Deficit Stated complaint: dizzy, slurred speech, LKN yesterday Time Seen by Provider: 03/21/23 14:48 Source: patient Mode of arrival: ambulatory Limitations: no limitations History of Present Illness HPI narrative: This is a 52-year-old male with PMH of CHF, AFib who presents to the ED with chief complaint of slurred speech, confusion and brain fog the past 2 days. Reports this started Tuesday night but he does not remember what happened. Reports that he when out to drinks with his and has not normally do and they went home afterwards, but he does not remember much of the night. Reports yesterday he was feeling okay but had a little brain fog but today he started feeling more dizzy and ataxic so he came here. Reports a little bit of numbness to the left hand and weakness to the left arm. Reports chronic numbness to bilateral feet neuropathy. Also endorses headache. denies fevers, chills, chest pain, shortness of breath, neck pain. Denies any recent trauma or falls. Related Data Home Medications Medication Instructions Recorded Confirmed fluticasone propionate 50 2 spray intranasal DAILY 06/04/21 03/21/23 mcg/actuation nasal spray,suspension (Allergy Relief (fluticasone)) Vitamin D3 1.25 mg PO WEEKLY 11/02/21 03/21/23 amlodipine 5 mg tablet 5 mg PO DAILY 11/02/21 03/21/23 atorvastatin 40 mg tablet 40 mg PO DAILY 11/02/21 03/21/23 apixaban 5 mg tablet (Eliquis) 5 mg PO DAILY 05/03/22 03/21/23 metoprolol succinate 100 mg 100 mg PO BID 05/03/22 03/21/23 tablet,extended release 24 hr (Toprol XL) hydrocodone 7.5 mg-acetaminophen 1 tablet PO TID PRN Pain (Scale 03/21/23 03/21/23 325 mg tablet Score 4-6) Allergies Allergy/AdvReac Type Severity Reaction Status Date / Time No Known Allergies Allergy Unknown Verified 03/21/23 14:38 Review of Systems Review of Systems: All systems as dictated in [facility] Past Medical History Medical History Atrial fibrillation Chronic anticoagulation History of cardioversion Hyperlipidemia Hypertension Impingement of right knee joint Joint effusion Right knee Obesity Painful total knee replacement, right Surgical History Surgical History H/O shoulder surgery History of synovectomy (~06/10/21) right arthroscopic synovectomy History of total knee replacement (~09/2016) right knee Family History Family History Father Hypertension Mother Hypertension Sibling Hypertension Other Diabetes mellitus Social History Social History Social History: Patient is currently going through a divorce and has two boys 02/03. His mother is his surrogate Ml. He lives by his self and wishes to be a full code at this time. He works for [employer]. Code status full code Smoking status: Former smoker Additional smoking assessment comments: 1-2 cigars/day Alcohol intake: current Drinks per week: 7 Substance use: never Lack of Transportation: No Lack of Food: Sometimes True Current Housing: I Have Housing Concerned About Future Housing: No Difficulty Paying Gas/Electric Bills: No Difficulty Paying for Meds: No Currently Unemployed: No Education: Trade/Vocational Certificate Difficulty w/ Childcare or Family Care: No Living arrangements: alone Occupation/Education: occupation Additional occupation/education comments: [employer] Gender identity (if verbalized by the patient): Male Sexual Orientation (if Verbalized by the Patient): Straight or Heterosexual Spiritual care concerns: No Agree to blood products: Yes Exam Narrative: GENERAL: Well-appearing, well-nourished, and in no acute distress. HEAD: Norm
[2023-03-21 15:10] LABS: Appearance Urine Clear (Clear); Bacteria Urine None Seen /hpf; Bilirubin Urine Negative (Negative); Blood Urine Trace (Negative); Color Urine Yellow (Yellow); Glucose Urine UA Negative (Negative); Ketones Urine Negative (Negative); Leukocyte Esterase Ur Negative LEU/UL (Negative); Nitrate Urine Negative (Negative); Non Pathogenic Casts 0-2; Protein Urine Trace mg/dL (Negative); RBC Urine 0-2 /hpf (0-2); Squamous Epithelial Cell Urine None seen /hpf (Few); Urobilinogen Urine 0.2 mg/dL (<2.0); WBC Urine 0-5 /hpf; pH Urine 5.5 (5.0-9.0)
[2023-03-21 15:12] LABS: Add Urine Microscopic? YES
[2023-03-21 15:14] LABS: Partial Thromboplastin Time 30.1 SECONDS (22.3-36.8); Prothrombin Time 13.7 Seconds (11.1-14.7)
--- NOTE | 2023-03-21 17:24 | ED.GENADULT ---
HPI - General Adult General Chief complaint: Neuro Symptoms/Deficit Stated complaint: dizzy, slurred speech, LKN yesterday Time Seen by Provider: 03/21/23 14:48 Source: patient Mode of arrival: ambulatory Limitations: no limitations History of Present Illness HPI narrative: 52-year-old male with history of prior procedure and on Eliquis presents in the department for evaluation after having slurred speech and dizziness and left-sided weakness that started on Tuesday. Patient reports he was out at a bar but did not have a large amount of alcohol, the patient does not recall the events of the bar and the patient's states the patient confused and slurring his speech. Patient's symptoms did continue to worsen through the night on Tuesday and when patient woke up on Tuesday he was still having left-sided upper and lower extremity weakness. Related Data Home Medications Medication Instructions Recorded Confirmed fluticasone propionate 50 2 spray intranasal DAILY 06/04/21 03/21/23 mcg/actuation nasal spray,suspension (Allergy Relief (fluticasone)) Vitamin D3 1.25 mg PO WEEKLY 11/02/21 03/21/23 amlodipine 5 mg tablet 5 mg PO DAILY 11/02/21 03/21/23 atorvastatin 40 mg tablet 40 mg PO DAILY 11/02/21 03/21/23 apixaban 5 mg tablet (Eliquis) 5 mg PO DAILY 05/03/22 03/21/23 metoprolol succinate 100 mg 100 mg PO BID 05/03/22 03/21/23 tablet,extended release 24 hr (Toprol XL) Allergies Allergy/AdvReac Type Severity Reaction Status Date / Time No Known Allergies Allergy Unknown Verified 03/21/23 14:38 Review of Systems Review of Systems: All systems reviewed & are unremarkable except as noted in HPI and below PMFSH Past Medical History Medical History Atrial fibrillation History of cardioversion Hyperlipidemia Hypertension Impingement of right knee joint Joint effusion Right knee Obesity Painful total knee replacement, right Surgical History Surgical History H/O shoulder surgery History of synovectomy (~06/10/21) right arthroscopic synovectomy History of total knee replacement (~09/2016) right knee Family History Family History Father Hypertension Mother Hypertension Sibling Hypertension Other Diabetes mellitus Social History Social History Social History: Patient is currently going through a divorce and has two boys 02/03. His mother is his surrogate Ml. He lives by his self and wishes to be a full code at this time. He works for [employer]. 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 HEAD: normocephalic, atraumatic. EYES: PERRLA/EOMI, conjunctivae clear. NOSE: Normal no drainage EARS:TMS clear with good light reflex. THROAT: Pharynx clear, no exudate. NECK: Supple. No adenopathy, no masses. RESPIRATORY: Airway patent, respirations nonlabored. Clear to auscultation bilaterally, no rales, rhonchi, wheez
[2023-03-21] MEDS: ACETAMINOPHEN 500 MG TABLET 1000 MG PO (17:52)
[2023-03-21] MEDS: HYDROcodone/acetaminophen (*CRX) 7.5-325 MG TABLET 1 TAB PO (21:03)
--- NOTE | 2023-03-21 23:23 | PM.IMHP ---
H&P: HPI History of Present Illness Date/Time: 03/21/23 23:00 Chief Complaint: Slurred speech, dizziness, difficulties walking. Narrative: This is a 52-year-old male with history of stroke, atrial fibrillation on chronic anticoagulation, hypertension, and chronic pain syndrome who presented to the emergency department via private vehicle for evaluation of slurred speech, dizziness, and difficulties walking. The patient provides the following history. He and his girlfriend were at a libertarian on Tuesday and she noticed that his speech seemed a bit slurred and that he appeared to be stumbling while walking. She assumed that he perhaps had too much to drink however his symptoms have continued. Speech is no longer slurred however he does note occasional stuttering. His left arm and leg are weaker when compared to the right and he feels a bit off balance, almost as though he is swaying back and forth. He has been complaining of intermittent headache since that time and he took ibuprofen today at 10:00 without much benefit. Given ongoing symptoms she brought him in for evaluation. Blood pressure has been as high as 187/117 since arrival. CMP and CBC were reviewed and pretty unremarkable. Urinalysis was negative. CT of the head and neck showed no significant intracranial arterial stenosis and no acute findings. He is being admitted in this setting for further evaluation. Of note the patient is prescribed Eliquis twice a day but he is only taking 5 mg once a day. Review of Systems Review of Systems: Twelve systems were reviewed. No fever, chills, or sweats. No recent cold or flu symptoms. He has chronic hip pain and is on hydrocodone. Except as documented, all other systems were reviewed and are negative. [facility] Past Medical History Medical History Atrial fibrillation Chronic anticoagulation History of cardioversion Hyperlipidemia Hypertension Impingement of right knee joint Joint effusion Right knee Obesity Painful total knee replacement, right Surgical History Surgical History H/O shoulder surgery History of synovectomy (~06/10/21) right arthroscopic synovectomy History of total knee replacement (~09/2016) right knee Family History Family History Father Hypertension Mother Hypertension Sibling Hypertension Other Diabetes mellitus Social History Social History Social History: Patient is currently going through a divorce and has two boys 02/03. His mother is his surrogate Ml. He lives by his self and wishes to be a full code at this time. He works for [employer]. 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
[2023-03-21] MEDS: METOPROLOL SUCCINATE EXT REL 100 MG TABCR PO (23:51)
[2023-03-21] MEDS: MORPHINE SULFATE (*CRX) 4 MG/ML INJ IV PUSH (23:52)
[2023-03-22] VITALS (11 sets, daily range): BP systolic 97–142; BP diastolic 69–98; PULSE 66–90; RESP 14–20; TEMP 36.3–36.4; O2SAT 97–100
--- NOTE | 2023-03-22 00:03 | ECHO_ITS ---
Patient Info Name: Tobi Valles Age: 52 years : 1970 Gender: Male Ht: 78 in Wt: 320 lbs BSA: 2.87 m2 HR: 78 bpm BP: 142 / 98 mmHg Heart Rhythm: Atrial Fibrillation Technical Quality: Fair Exam Date: 03/22/2023 10:36 AM Exam Location: Echo Lab Patient Status: Outpatient Admit Date: 03/21/2023 Staff Ordering Physician: Nay Ku PA-C Metal Sponge Making Machine Operator: Shoshana Carballo RDCS Attending Provider: Lyndon Gonzales MD Referring Physician: Kings STOVER; Exam Type: CA echo dop bubble study w con Study Info Indications - Stroke, Atrial fib Complete two-dimentional, color flow and Doppler transthoracic echocardiogram is performed with agitated saline and with contrast to opacify the left ventricle and to improve the delineation of the left ventricle endocardial borders. Contrast/Agitated Saline Contrast/Ag. Saline: Definity Amount: 3.00 ml Administered By: Shoshana Carballo RDCS Existing IV Access: Yes IV Access Condition: patent with no signs of infiltration Contrast/Ag. Saline: Agitated Saline Amount: 20.00 ml Existing IV Access: Yes IV Access Condition: patent with no signs of infiltration Summary 1. Left ventricular chamber dimension is normal. 2. Left ventricular systolic function is normal, estimated at 55-60%. 3. There is mildly increased left ventricular wall thickness. 4. Right ventricular systolic function is normal. 5. Left atrial chamber dimension is mildly enlarged. 6. There is trace mitral valve regurgitation. 7. There is trace tricuspid valve regurgitation. 8. Intact interatrial septum visualized by agitated saline imaging. Negative bubble study. Left Ventricle Left ventricular chamber dimension is normal. Left ventricular systolic function is normal, estimated at 55-60%. There is mildly increased left ventricular wall thickness. Right Ventricle Right ventricular chamber dimension is normal. Right ventricular systolic function is normal. Left Atria Left atrial chamber dimension is mildly enlarged. Right Atria Right atrial chamber dimension is normal. Atrial Septum Intact interatrial septum visualized by agitated saline imaging. Negative bubble study. Aortic Valve The aortic valve is not well visualized. There is no aortic valve stenosis. There is no aortic valve regurgitation. Pulmonic Valve The pulmonic valve is not well visualized. Mitral Valve There is trace mitral valve regurgitation. Tricuspid Valve There is trace tricuspid valve regurgitation. Pericardium/Pleural There is no pericardial effusion. Inferior Vena Cava Normal inferior vena cava with >50% collapse upon inspiration consistent with normal right atrial pressure, 3 mmHg. Aorta The aortic root size at the sinus of Valsalva is normal. Left Ventricular Outflow Tract Name Value Normal LVOT 2D LVOT Diameter 2.2 cm LVOT Doppler LVOT Peak Gradient 1 mmHg LVOT Mean Gradient 1 mmHg LVOT VTI 11 cm LVOT VTI/AV VTI Ratio 0.6 LVOT Stroke Volume 41 ml
[2023-03-22] MEDS: HYDROcodone/acetaminophen (*CRX) 7.5-325 MG TABLET 1 TAB PO ×2 (07:38→17:39)
[2023-03-22] MEDS: METOPROLOL SUCCINATE EXT REL 100 MG TABCR PO ×2 (09:23→20:29)
[2023-03-22] MEDS: amLODIPine BESYLATE 5 MG TABLET PO (09:23)
[2023-03-22] MEDS: ATORVASTATIN 40 MG TABLET PO (09:24)
[2023-03-22] MEDS: FLUTICASONE PROPIONATE 0.05% NA SPR 16 GM BTL (*BKC) 2 SPRAY NASAL (09:24)
--- NOTE | 2023-03-22 10:09 | PM.IMPN ---
Progress Note: A&P Assessment and Plan (1) Cerebrovascular accident: Code(s): I63.9 - Cerebral infarction, unspecified Status: Acute Assessment and Plan: NIHSS 8 as documented. Brain MRI neg. Echo with bubble study pending. MRI cervical spine/thoracic spine ordered to rule out space occupying lesion. No recent infectious symptoms, no fever/chills, no IV drug use or skin infections. 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 PT/OT as an outpatient at minimum should be ordered on discharge continue atorvastatin hold further aspirin due to Eliquis Time Spent With Patient Time with patient: Greater than 35 minutes Subjective Date/time seen: 03/22/23 10:09 Interval history: Patient presented to the emergency department with left upper and lower extremity weakness as well as dizziness. He was admitted for stroke workup and Neurology consult. NIH stroke scale completed at patient bedside this morning resulted score of 8. Patient had significant weakness and ataxia of left upper and lower extremity as well as sensation differences between left and right side of the body, unable to name hammock and slight slurring of a couple words. Physical therapy evaluated patient noted left-sided weakness but felt that patient would be able to ambulate in the room and obtain outpatient therapy services. MRI was completed however this was read as normal aging brain. Discussed these findings with patient and his family and there may be functional problem without structural changes on imaging to explain patient's symptoms. However, a space-occupying lesion in the cervical or upper thoracic spine could also give similar symptoms so we will order MRI C-spine and T-spine with and without contrast to be done tomorrow. Patient does have a history of atrial fibrillation is on Eliquis. He was only taking Eliquis once daily. Patient is on [place] for chronic hip pain which we are continuing. He is already on atorvastatin. Heart rate and blood pressure are controlled. Patient has no history of behavioral health concerns or complaints of current depression. Conversion disorder remains within the differential. Review of Systems Review of Systems: All systems reviewed & are unremarkable except as noted in HPI and below Exam Narrative: General: Well-developed male in no acute distress. Weight: 145.5 kg. BMI: 37.1. HEENT: PERRL, EOMI. Sclera anicteric. Oral mucosa moist. Oropharynx clear. Neck: Supple. No bruits. Respiratory: Lungs are clear to auscultation bilaterally. Cardiovascular: regular rate and irregular rhythm with S1-S2, atrial fibrillation rate 78 on telemetry by my interpretation Gastrointestinal: Abdomen is soft, nontender, and nondistended with positive bowel sounds. Skin: Warm and dry. No rash or lesions on limited exam. Extremities: No cyanosis, clubbing, or edema. Radial and pedal pulses intact. Neurological: Alert and oriented. NIHSS 8 as below, left upper and lower limb weakness with ataxia on left only, ataxic gait noted Psychiatric: Pleasant and cooperative with normal mood and affect. Judgment and insight intact. Objective Data Vital Signs Vital Signs: Vital Signs - 24 hr 03/21/23 12:40 03/21/23 14:35 03/21/23 16:24 Temperature 36.6 C Pulse Rate 71 79 80 Respiratory Rate 20 18 18 Blood Pressure 176/106 H 187/117 H 158/102 H Pulse Oximetry 100 100 98 Oxygen Delivery Room Air 03/21/23 18:45 03/21/23 20:00 03/21/23 22:00 Temperature 36.8 C 36.6 C Pulse Rate 74 80 66 Respir
[2023-03-22] MEDS: PERFLUTREN LIPID MICROSPHERES 1.5 ML VIAL DILUTED TO 10 ML TOTAL VOLUME IV PUSH (10:50)
[2023-03-22] MEDS: ALPRAZolam (*CRX) 0.5 MG TABLET PO (11:21)
[2023-03-22] MEDS: MORPHINE SULFATE (*CRX) 4 MG/ML INJ IV PUSH ×2 (11:21→23:40)
[2023-03-22] MEDS: ASPIRIN 325 MG TABLET PO (11:21)
--- NOTE | 2023-03-22 11:48 | WPDNEURCNPN ---
Assessment and Plan Assessment and plan (1) Atrial fibrillation: Code(s): I48.91 - Unspecified atrial fibrillation Status: Acute (2) Cerebrovascular accident: Code(s): I63.9 - Cerebral infarction, unspecified Status: Acute Plan 1. Chronic anticoagulation therapy with underlying atrial fibrillation 2. Possibility of the new stroke at this stage echocardiogram is being done he be evaluated further and in the meantime treatment will be continued as such Consult date: 03/22/23 HPI: Tobi Valles is a 52 year old male Admitted to the hospital through the emergency room for the complaints of dizziness along with slurred speech he arrived to the ER in ambulatory condition with no specific neural limitations, has undergone prior procedure and has been taking Eliquis but did complain of left-sided weakness along with the dizziness since Tuesday reportedly he was out at bar though he did not take large amount of alcohol was found to be confused with slurred speech which continued to worsen through the night on Tuesday and on Tuesday morning when he woke he did experience left-sided upper and lower extremity weakness, home medications included amlodipine 5mg daily, atorvastatin 40mg daily, apixaban 5mg daily, he is not allergic to any medication but does carry the diagnosis of atrial fibrillation and has undergone cardioversion in the past, does have ongoing history of hyperlipidemia, hypertension , is currently alcohol intake or 7 drinks per week, initial vital signs with blood pressure of 176/106, CBC normal BMP normal, x-ray chest negative head neck CTA with no evidence of stenosis of the proximal internal carotid arteries or aneurysm and stroke scale of only 1 PMFSH Past Medical History Medical History (Updated 03/21/23 @ 23:26 by Nay Ku PA-C) Atrial fibrillation Chronic anticoagulation History of cardioversion Hyperlipidemia Hypertension Impingement of right knee joint Joint effusion Right knee Obesity Painful total knee replacement, right Surgical History Surgical History H/O shoulder surgery History of synovectomy (~06/10/21) right arthroscopic synovectomy History of total knee replacement (~09/2016) right knee Family History Family History Father Hypertension Mother Hypertension Sibling Hypertension Other Diabetes mellitus Social History Social History Social History: Patient is currently going through a divorce and has two boys 02/03. His mother is his surrogate Ml. He lives by his self and wishes to be a full code at this time. He works for [employer]. 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
--- NOTE | 2023-03-22 12:03 | IVDEFINITY ---
Prior to administration of IV Definity the patient was educated on the risks and benefits of the imaging enhancing agent including potential adverse side effects. The patient verbalized understanding. Allergies were verified. No exclusion criteria were identified and at least one of the following inclusion criteria were met: 1) physician request, 2) patient technically difficult to image (per the [place] [employer] guidelines of two or more segments not discernable within the apical view), or 3) questionable left ventricular function. ?
--- NOTE | 2023-03-22 13:28 | PC.NURSE ---
On 03/22/23, the student, [Leigh Laboy], provided care and completed [facility] documentation on this patient. I have reviewed the student's documentation and agree with the findings.
[2023-03-23 02:40] VITALS: BP 120/86; PULSE 63; RESP 20; TEMP 36.4; O2SAT 99
[2023-03-23 05:20] LABS: Basophils Absolute Auto 0.1 K/mm3 (0.0-0.1); Basophils Percent Auto 0.9 % (0.2-1.2); Eosinophils Absolute Auto 0.2 K/mm3 (0-0.3); Eosinophils Percent Auto 2.5 % (0-4.4); Hematocrit 45.1 % (42.0-52.0); Hemoglobin 15.2 g/dL (14.0-18.0); Immature Granulocyte Absolute 0.02 K/mm3 (0.00-0.031); Immature Granulocyte Percent A 0.3 % (0-0.5); Lymphocytes Absolute Auto 2.25 K/mm3 (0.9-3.2); Lymphocytes Percent Auto 33.5 % (18.3-44.2); Mean Corpuscular HGB Conc 33.7 g/dl (32-36); Mean Corpuscular Hemoglobin 31.3 pg (26-34); Mean Platelet Volume 11.1 fl (7.4-10.4); Monocytes Absolute Auto 0.5 K/mm3 (0.1-0.6); Neutrophils Absolute Auto 3.7 K/mm3 (1.3-6.7); Neutrophils Percent Auto 54.8 % (45.5-73.1); Platelet Count Result 192 k/mm3 (150-375); Red Blood Count 4.85 M/mm3 (4.6-6.20); Red Cell Distribution Width 11.7 % (11.5-14.5); White Blood Count 6.7 K/mm3 (4.5-10.0)
[2023-03-23 05:38] LABS: Alanine Aminotransferase 21 U/L (6-50); Alkaline Phosphatase 63 U/L (38-126); Anion Gap 9 mmol/L (8-16); Aspartate Amino Transferase 27 U/L (17-59); Bilirubin,Total 0.6 mg/dL (0.2-1.3); Blood Urea Nitrogen 17 mg/dL (9-20); Calcium 8.9 mg/dL (8.4-10.2); Carbon Dioxide 27 mmol/L (22-30); Chloride 101 mmol/L (98-107); Estimated CRCL calculation 113 ml/min; Estimated Glomerular Filt Rate > 60; Glucose 98 mg/dL (65-110); Magnesium 1.8 mg/dL (1.6-2.3); Potassium 3.9 mmol/L (3.4-5.0); Sodium 137 mmol/L (137-145)
[2023-03-23] MEDS: MORPHINE SULFATE (*CRX) 4 MG/ML INJ IV PUSH ×2 (05:48→10:20)
[2023-03-23 08:47] VITALS: PULSE 104
[2023-03-23] MEDS: ATORVASTATIN 40 MG TABLET PO (08:47)
[2023-03-23] MEDS: METOPROLOL SUCCINATE EXT REL 100 MG TABCR PO (08:47)
[2023-03-23] MEDS: FLUTICASONE PROPIONATE 0.05% NA SPR 16 GM BTL (*BKC) 2 SPRAY NASAL (08:47)
[2023-03-23] MEDS: amLODIPine BESYLATE 5 MG TABLET PO (08:48)
--- NOTE | 2023-03-23 12:45 | PM.DS ---
DS: Admitting Diagnosis Discharge Date 03/23/2023 Admitting Diagnosis Slurred speech, dizziness, difficulties walking. DS: Discharge Diagnosis Discharge Diagnosis (1) Cerebrovascular accident: Code(s): I63.9 - Cerebral infarction, unspecified Status: Acute Assessment and Plan: NIHSS 8 as documented. Brain MRI neg. Echo with bubble study pending. MRI cervical spine/thoracic spine ordered to rule out space occupying lesion. all tests complete pt ok to dc. (2) Chronic anticoagulation: Code(s): Z79.01 - prison (current) use of anticoagulants Status: Acute Assessment and Plan: Continue Eliquis 5 mg bid (3) Atrial fibrillation: Code(s): I48.91 - Unspecified atrial fibrillation Status: Acute Assessment and Plan: rate controlled, continue metoprolol and Eliquis Plan pt had mri brain then MRI C and T spine 03/23 to assess for space occupying lesion or cord stroke all tests completed DS: Summary Hospital Course Hospital Course: Patient presented to the emergency department with left upper and lower extremity weakness as well as dizziness.? He was admitted for stroke workup and Neurology consult.? NIH stroke scale completed at patient bedside this morning resulted score of 8.? Patient had significant weakness and ataxia of left upper and lower extremity as well as sensation differences between left and right side of the body, unable to name hammock and slight slurring of a couple words.? Physical therapy evaluated patient noted left-sided weakness but felt that patient would be able to ambulate in the room and obtain outpatient therapy services.? MRI was completed however this was read as normal aging brain.? Discussed these findings with patient and his family and there may be functional problem without structural changes on imaging to explain patient's symptoms.? However, a space-occupying lesion in the cervical or upper thoracic spine could also give similar symptoms so we will order MRI C-spine and T-spine with and without contrast to be done tomorrow.? Patient does have a history of atrial fibrillation is on Eliquis.? He was only taking Eliquis once daily.? Patient is on [place] for chronic hip pain which we are continuing.? He is already on atorvastatin.? Heart rate and blood pressure are controlled.? Patient has no history of behavioral health concerns or complaints of current depression.? Conversion disorder remains within the differential. pt will follow with neurology in clinic. Time Spent with Patient Time attestation: Total time spent providing and/or coordinating discharge services:45 minutes on day of dc Exam Narrative: General: Well-developed male Neck: Supple. No bruits. Respiratory: Lungs are clear to auscultation bilaterally. Cardiovascular: regular rate and irregular rhythm with S1-S2, atrial fibrillation rate 78 on telemetry by my interpretation Gastrointestinal: Abdomen is soft, nontender, and nondistended with positive bowel sounds. Skin: Warm and dry. No rash or lesions on limited exam. Extremities: No cyanosis, clubbing, or edema. Radial and pedal pulses intact. Neurological: Alert and oriented. NIHSS 8 as below, left upper and lower limb weakness with ataxia on left only, ataxic gait noted Psychiatric: Pleasant and cooperative with normal mood and affect. Judgment and insight intact. DS: Data Data Completed and Pending Labs on day of discharge: Labs from last 24 hours 03/23/23 05:10 WBC 6.7 RBC 4.85 Hgb 15.2 Hct 45.1 MCV 93.0 MCH 31.3 MCHC 33.7 RDW 11.7 Plt Count 192 MPV 11.1 H Immature Gran % (Auto) 0.3 Neut % (Auto) 54.8 Lymph % (Auto) 33.5 [place] % (Auto) 8.0 Eos % (Auto) 2.5 Baso % (Auto) 0.9 Lymph # (Auto) 2.25 [place] # (Auto) 0.5 Eos # (Auto) 0.2 Baso # (Auto) 0.1 Abs Immat Gran (auto) 0.02 Absolute Neuts (auto) 3.7 Absolute Nucleated RBC 0.0 Nucleated RBC % 0.0 Sodium 137 Potassium 3.9
[2023-03-23] MEDS: HYDROcodone/acetaminophen (*CRX) 7.5-325 MG TABLET 1 TAB PO (13:15)
== END 2023-03-23 13:17 | disposition home or self-care (01) ==
LOC: ANHED 17:24 → ANH2MED 18:14
PROVIDERS: Nurse Practitioner; Physician Assistant; Admitting Provider Hospitalist; Emergency Provider Emergency Medicine; PCP Internal Medicine; Visit Provider Family Medicine
DX: I63.9 Cerebral infarction, unspecified (principal); R29.708 NIHSS score 8; I11.9 Hypertensive heart disease without heart failure; I50.9 Heart failure, unspecified; I48.91 Unspecified atrial fibrillation; R90.82 White matter disease, unspecified; G89.4 Chronic pain syndrome; M47.812 Spondylosis without myelopathy or radiculopathy, cervical region; E78.5 Hyperlipidemia, unspecified; E66.9 Obesity, unspecified; Z68.37 Body mass index [BMI] 37.0-37.9, adult; Z86.73 Personal history of transient ischemic attack (TIA), and cerebral infarction without residual deficits; Z87.891 Personal history of nicotine dependence; Z79.01 Long term (current) use of anticoagulants; Z79.891 Long term (current) use of opiate analgesic; Z79.899 Other long term (current) drug therapy; Z83.3 Family history of diabetes mellitus; Z82.49 Family history of ischemic heart disease and other diseases of the circulatory system
CPT/HCPCS: 36415; 70496; 70498; 70553; 71046; 72156; 72157; 80053; 81001; 82948; 83735; 85025; 85610; 85730; 93005; 96375; 97110; 97161; 97165; 97530; 99285; A9270; A9577; C8929; G0378; J2270; Q9957; Q9967